=== PATIENT | female | born 2000 | race Caucasian/White ===

== ENCOUNTER 2019-12-04 16:55 | Emergency (ER) | payer SELFPAY ==
[~2019-12-04] VITALS: Ht 160 cm; Wt 99.4 kg
[~2019-12-04 16:55] MED LIST: AMOX500C2 PO; CLOT21CR VG; SULF1TAB35 PO
--- NOTE | 2019-12-04 17:13 | ED Integumentary General ---
General Chief Complaint: Allergic Reaction Stated Complaint: RASH Nursing Triage Note: RASH STARTING LAST NIGHT. UNKNOWN CAUSE. TOOK AN ALLERGY RELIEF TAB TODAY. Source: patient Exam Limitations: no limitations History of Present Illness Date Seen by Provider: Dec 04, 2019 Time Seen by Provider: 17:07 Initial Comments To ER with reports of rash that began last night. Began on the volar aspect left wrist and spread proximally up the arm then involved the right arm and her entire torso. Itchy despite taking a Benadryl at 2 PM. No known cause. Timing/Duration: constant Severity: moderate Location: torso Associated Symptoms: rash Allergies and Home Medications Allergies Coded Allergies: NKANo Known Allergies (Verified Allergy, Unknown, 02/24/18) Patient Home Medication List Home Medication List Reviewed: Yes Review of Systems Review of Systems Constitutional: see HPI EENTM: see HPI Respiratory: no symptoms reported Cardiovascular: no symptoms reported Genitourinary: no symptoms reported Musculoskeletal: no symptoms reported Skin: see HPI Psychiatric/Neurological: No Symptoms Reported Endocrine: No Symptoms Reported Past Xrppftm-Ijwojy-Klmsvo Hx Patient Social History Alcohol Use: Denies Use Recreational Drug Use: No Smoking Status: Never a Smoker 2nd Hand Smoke Exposure: No Recent Foreign Travel: No Contact w/Someone Who Travel: No Recent Infectious Disease Expo: No Recent Hopitalizations: No Seasonal Allergies Seasonal Allergies: No Past Medical History Surgeries: Yes Tonsillectomy Respiratory: No Cardiac: No Neurological: No Genitourinary: No Gastrointestinal: Yes (H. Pylori) Gastroesophageal Reflux Musculoskeletal: No Endocrine: No HEENT: No Cancer: No Psychosocial: No Integumentary: No Blood Disorders: No Family Medical History No Pertinent Family Hx Physical Exam Vital Signs Vital Signs - First Documented 12/04/19 17:00 Temp 37.1 Pulse 91 Resp 16 B/P (MAP) 130/90 (103) Pulse Ox 98 O2 Delivery Room Air Capillary Refill : Less Than 3 Seconds General Appearance: WD/WN, no apparent distress HEENT: PERRL/EOMI, normal ENT inspection Respiratory: no respiratory distress, no accessory muscle use Gastrointestinal: normal bowel sounds, non tender Neurologic/Psychiatric: alert, normal mood/affect, oriented x 3 Skin: normal color, warm/dry, rash, other (urticarial type rash diffusely) Skin Problem Character: urticarial Progress/Results/Core Measures Results/Orders My Orders Orders - MINNIE MERCER APRN Hydroxyzine Cap/Tab (Vistaril) (12/04/19 17:15) Prednisone Tablet (Deltasone Tablet) (12/04/19 17:15) Vital Signs/I&O 12/04/19 17:00 Temp 37.1 Pulse 91 Resp 16 B/P (MAP) 130/90 (103) Pulse Ox 98 O2 Delivery Room Air Blood Pressure Mean: 103 Departure Impression Primary Impression: Urticaria Disposition: 01 HOME, SELF-CARE Condition: Stable Departure-Patient Inst. Decision time for Depature: 17:12 Referrals: NO,LOCAL PHYSICIAN (PCP/Family) Primary Care Physician Patient Instructions: Pau (SAMANTHA) Add. Discharge Instructions: 1. Use the off brand Benadryl is fine (diphenhydramine), 1-2 tablets every 4 hours. Steroids as directed. Return to ER for any concerns. All discharge instructions reviewed with patient and/or family. Voiced understanding. MINNIE MERCER APRN Dec 04, 2019 17:13
[2019-12-04] MEDS ORDERED: hydrOXYzine (VISTARIL/ATARAX) 25 MG capsule/tablet PO ONE (17:15)
[2019-12-04] MEDS ORDERED: predniSONE 20 MG TAB PO ONE (17:15)
[2019-12-04 17:23] VITALS: BP 130/90
== END 2019-12-04 17:23 | disposition home or self-care (01) ==
LOC: EDUNIT# 16:55 → ER 16:56
DX: L50.9 Urticaria, unspecified (principal)
CPT/HCPCS: 99283

== ENCOUNTER 2021-02-02 10:57 | Emergency (ER) | payer SELFPAY ==
[~2021-02-02] VITALS: Ht 160 cm; Wt 108.0 kg
--- NOTE | 2021-02-02 12:41 | ED Back Pain ---
General Chief Complaint: Back Problems Stated Complaint: R SIDED PAIN Nursing Triage Note: PT AMB TO ROOM 2 PT CO OF BACK PAIN RADIATES FROM R EAR DOWN NECK AND TO MID BACK. STATES STARTED COUPLE DAYS AGO. PT CRYING Nursing Sepsis Screen: No Definite Risk History of Present Illness Date Seen by Provider: Feb 02, 2021 Time Seen by Provider: 12:00 Initial Comments 20-year-old female presents for right shoulder pain that is radiating to her thoracic spine. The pain began approximately 3 days ago, without an injury. She has tried ibuprofen 400 mg and some Tylenol with minimal assistance in her pain, last dose yesterday evening. She denies any injury or previous surgeries to her right shoulder she is right-hand dominant. Location: Other (Right shoulder) Timing/Duration: 3-4 Days Severity: Mild, Moderate Pain/Injury Location: Upper Extremity (Right shoulder) Radiation: Other (Thoracic spine) Method of Injury: Unknown Modifying Factors: Improves With Rest Associated Symptoms: muscle spasms; No fever, No weakness, No numbness in legs /feet, No tingling in legs/feet, No sensory/motor loss, No lower back pain, No loss of bladder control, No loss of bowel control Allergies and Home Medications Allergies Coded Allergies: NKANo Known Allergies (Verified Allergy, Unknown, 02/24/18) Home Medications Ciprofloxacin HCl 500 Mg Tablet, 500 MG PO BID Prescribed by: GENO AGUILAR on 02/02/211331 Cyclobenzaprine HCl 10 Mg Tablet, 10 MG PO Q8H PRN for SPASMS Prescribed by: GENO AGUILAR on 02/02/21 133 Ibuprofen 800 Mg Tablet, 800 MG PO Q8H PRN for PAIN Prescribed by: GENO AGUILAR on 02/02/21 1332 Patient Home Medication List Home Medication List Reviewed: Yes Review of Systems Constitutional: no symptoms reported, see HPI Musculoskeletal: see HPI, back pain (Upper thoracic), joint pain (Right shoulder) All Other Systems Reviewed Negative Unless Noted: Yes Past Abxjimk-Uzhbjm-Wsanvc Hx Past Med/Social Hx: Reviewed Nursing Past Med/Soc Hx Patient Social History Alcohol Use: Occasionally Uses Smoking Status: Never a Smoker 2nd Hand Smoke Exposure: No Recent Infectious Disease Expo: No Recent Hopitalizations: No Seasonal Allergies Seasonal Allergies: No Past Medical History Surgeries: Yes Tonsillectomy Respiratory: No Cardiac: No Neurological: No Genitourinary: No Gastrointestinal: Yes (H. Pylori) Gastroesophageal Reflux Musculoskeletal: No Endocrine: No HEENT: No Cancer: No Psychosocial: No Integumentary: No Blood Disorders: No Family Medical History No Pertinent Family Hx Physical Exam Vital Signs Vital Signs - First Documented 02/02/21 11:30 Temp 36.4 Pulse 91 Resp 20 B/P (MAP) 131/91 (104) Pulse Ox 98 Capillary Refill : Less Than 3 Seconds Height, Weight, BMI Height: 5'3.00" Weight: 180lbs. oz. 81.505666vh; 42.00 BMI Method:Stated General Appearance: No Apparent Distress, WD/WN HEENT: PERRL/EOMI, TMs Normal, Normal ENT Inspection, Pharynx Normal Neck: Full Range of Motion, Normal Inspection, Non Tender, Supple, Tender Lateral (Right); No Tender Midline Cardiovascular: Regular Rate, Rhythm, No Edema, No Murmur, Normal Peripheral Pulses Respiratory: Chest Non Tender, Lungs Clear, Normal Breath Sounds Back: Normal Inspection, No CVA Tenderness, Muscle Spasm (Right trapezius and upper thoracic) Neurologic/Psychiatric: Alert, Oriented x3, No Motor/Sensory Deficits, Normal Mood/Affect Skin: Normal Color, Warm/Dry Right shoulder limitation of motion secondary to pain. Pain with impingement maneuver. No weakness with bicep and tricep testing. Trace weakness in external rotators. Negative apprehension maneuver. Progress/Results/Core Measures Results/Orders Lab Results Laboratory Tests Test 02/02/21 12:44 Range/Units Urine Color YELLOW Urine Clarity CLEAR Urine pH 7.0 5-9 Urine Specific [place] 1.025 H 1.016-1.022 Urine Protein NEGATIVE NEGATIVE Urine Glucose (UA) NEGATIVE NEGATIVE Urine Ketones NEGATIVE NEGATIVE Urine Nitrite NEGATIVE NEGATIVE Urine Bilirubin NEGATIVE NEGATIVE Urine Urobilinogen 1.0 < = 1.0 MG/DL Urine Leukocyte Esterase 2+ H NEGATIVE Urine RBC (Auto) NEGATIVE NEGATIVE Urine RBC RARE /HPF Urine WBC 25-50 H /HPF Urine Squamous Epithelial Cells 10-25 H /HPF Urine Crystals NONE /LPF Urine Bacteria LARGE H /HPF Urine Casts NONE /LPF Urine Mucus SMALL H /LPF Urine Culture Indicated YES My Orders Orders - GENO AGUILAR Shoulder, Right, 3 Views (02/02/21 12:42) Ibuprofen Tablet (Motrin Tablet) (02/02/21 12:42) Cyclobenzaprine Tablet (Flexeril Tablet) (02/02/21 13:28) Vital Signs/I&O 02/02/21 02/02/21 11:30 13:38 Temp 36.4 Pulse 91 72 Resp 20 20 B/P (MAP) 131/91 (104) 122/82 (104) Pulse Ox 98 98 Blood Pressure Mean: 104 Diagnostic Imaging Diagonstic Imaging: Xray Plain Films/CT/US/NM/MRI: other (Shoulder) Comments NAME: YIFAN ANDINO [facility] REC#: [id number] PT STATUS: REG ER : 2000 PHYSICIAN: GENO AGUILAR ADMIT DATE: 02/02/21/ER Draft Date of Exam:02/02/21 SHOULDER, RIGHT, 3 VIEWS INDICATION: Right shoulder pain. FINDINGS: Three views of the right shoulder show no fracture, dislocation, or other acute abnormalities. IMPRESSION: Negative right shoulder. Dictated on workstation # [id number] Dict: 02/02/21 1325 Trans: 02/02/21 1328 [id number] Interpreted by: SRINIVAS MOSCOSO MD Electronically signed by: Departure Impression Primary Impression: Right shoulder pain Qualified Codes: M25.511 - Pain in right shoulder Additional Impression: UTI (urinary tract infection) Qualified Codes: N30.00 - Acute cystitis without hematuria Disposition: HOME, SELF-CARE Condition: Improved Departure-Patient Inst. Decision time for Depature: 13:15 Referrals: [facility]/GABRIELLA RUSHING,LOCAL PHYSICIAN (PCP) Primary Care Physician Patient Instructions: Shoulder Pain (DC), Upper Back Pain (DC), Urinary Tract Infection, Adult (DC) Add. Discharge Instructions: [facility] increase water intake, 16 ounces every 2 hours while awake. Take antibiotics as prescribed. Use ibuprofen 800 mg every 8 hours as prescribed, you may take Tylenol 650 mg 4 hours after your ibuprofen if it is not relieving your symptoms. Use the Flexeril as directed for muscle spasms. Use the sling as needed but remove 4-6 times daily and work on range of motion exercises for your right shoulder. If symptoms are not improving follow-up with your primary care provider at [facility] and seek referral to orthopedics or. Return to the emergency department for new, urgent healthcare needs. All discharge instructions reviewed with patient and/or family. Voiced understanding. Scripts Ciprofloxacin HCl (Ciprofloxacin HCl) 500 Mg Tablet 500 MG PO BID, #6 TAB 0 Refills Prov: GENO AGUILAR 02/02/21 Cyclobenzaprine HCl (Cyclobenzaprine HCl) 10 Mg Tablet 10 MG PO Q8H PRN for SPASMS, #15 TAB 0 Refills Prov: GENO AGUILAR 02/02/21 Ibuprofen (Ibuprofen) 800 Mg Tablet 800 MG PO Q8H PRN for PAIN, #30 TAB 0 Refills Prov: GENO AGUILAR 02/02/21 Work/School Note: Work Release Form Date Seen in the Emergency Department: Feb 02, 2021 Return to Work: Feb 04, 2021 Other Restrictions Listed Below: Sling as needed for work. GENO AGUILAR Feb 02, 2021 12:41
[2021-02-02] MEDS ORDERED: IBUPROFEN 800 MG (MOTRIN) TAB PO STA (12:42)
[2021-02-02 12:51] LABS: BILIRUBIN,URINE NEGATIVE (NEGATIVE); CLARITY,URINE CLEAR; COLOR,URINE YELLOW; GLUCOSE, URINE (UA) NEGATIVE (NEGATIVE); KETONES,URINE NEGATIVE (NEGATIVE); LEUKOCYTE ESTERASE ,URINE 2+ (NEGATIVE); NITRITE,URINE NEGATIVE (NEGATIVE); PROTEIN,URINE NEGATIVE (NEGATIVE)
[2021-02-02 13:09] LABS: BACTERIA,URINE LARGE /HPF; RBC,URINE RARE /HPF; WBC,URINE 25-50 /HPF
[2021-02-02] MEDS ORDERED: CYCLOBENZAPRINE 10 MG (FLEXERIL) TAB PO STA (13:28)
--- NOTE | 2021-02-02 13:29 | Diagnostic Imaging Report ---
INDICATION: Right shoulder pain. FINDINGS: Three views of the right shoulder show no fracture, dislocation, or other acute abnormalities. IMPRESSION: Negative right shoulder. Dictated by: Dictated on workstation # [id number]
[2021-02-02] MEDS ORDERED: CIPR500T5 PO (13:32)
[2021-02-02] MEDS ORDERED: IBUP-1780 PO (13:32)
[2021-02-02] MEDS ORDERED: CYCL10TA9 PO (13:32)
[2021-02-02 13:38] VITALS: BP 122/82
== END 2021-02-02 13:39 | disposition home or self-care (01) ==
LOC: EDUNIT# 10:57 → ER 10:59
DX: N30.00 Acute cystitis without hematuria (principal); M25.511 Pain in right shoulder
CPT/HCPCS: 73030; 81000; 84703; 87088

== ENCOUNTER 2021-05-03 06:35 | Emergency (ER) | payer SELFPAY ==
[~2021-05-03] VITALS: Ht 160 cm; Wt 105.0 kg
[~2021-05-03 06:35] MED LIST changes: +CIPR500T5 PO; +CYCL10TA9 PO; +IBUP-1780 PO
[2021-05-03 06:57] LABS: CLARITY,URINE CLOUDY; COLOR,URINE RED; GLUCOSE, URINE (UA) NEGATIVE (NEGATIVE); KETONES,URINE NEGATIVE (NEGATIVE); LEUKOCYTE ESTERASE ,URINE NEGATIVE (NEGATIVE); NITRITE,URINE NEGATIVE (NEGATIVE); PROTEIN,URINE 2+ (NEGATIVE)
[2021-05-03] MEDS ORDERED: LACTATED RINGERS 1,000 ML IV ONE (07:00)
[2021-05-03] MEDS ORDERED: KETOROLAC 30 MG/ML VIAL IVP ONE (07:00)
[2021-05-03] MEDS ORDERED: ONDANSETRON 4 MG/2 ML (SDV) Z0FRAN IVP ONE ×2 (07:00→09:45)
--- NOTE | 2021-05-03 07:01 | ED Abdominal Pain ---
General Stated Complaint: CHEST PAIN,KIDNEY PAIN Source of Information: Patient Exam Limitations: No Limitations History of Present Illness Date Seen by Provider: May 03, 2021 Time Seen by Provider: 06:42 Initial Comments Patient to the ER by private conveyance from home with chief complaint that about 2:30 in the morning she was awoken with sharp left flank pain nonrelenting, severe accompanied by nausea and vomiting. She did not take anything for the pain. She continued to have pain and after vomiting she developed some right-sided chest pain reproducible to deep inspiration but not direct palpation. No history of heart disease. No history of kidney stones. No history of abdominal surgeries. No fevers or chills. No diarrhea constipation or sick contacts. Allergies and Home Medications Allergies Coded Allergies: morphine (Verified Allergy, Severe, 05/03/21) stops breathing NKANo Known Allergies (Verified Allergy, Unknown, 02/24/18) acetaminophen (Verified Allergy, Unknown, rash, 05/03/21) hydrocodone (Verified Allergy, Unknown, rash, 05/03/21) Home Medications Ciprofloxacin HCl 500 Mg Tablet, 500 MG PO BID Prescribed by: GENO AGUILAR on 02/02/21 1332 Cyclobenzaprine HCl 10 Mg Tablet, 10 MG PO Q8H PRN for SPASMS Prescribed by: GENO AGUILAR on 02/02/21 1332 Ibuprofen 800 Mg Tablet, 800 MG PO Q8H PRN for PAIN Prescribed by: GENO AGUILAR on 02/02/21 1332 Patient Home Medication List Home Medication List Reviewed: Yes Review of Systems Review of Systems Constitutional: No chills, No fever, No malaise EENTM: No Blurred Vision, No Double Vision Respiratory: Denies Cough, Denies Shortness of Air Cardiovascular: See HPI, Chest Pain; Denies Lightheadedness Gastrointestinal: See HPI, Abdominal Pain; Denies Constipated, Denies Diarrhea; Nausea, Vomiting Genitourinary: Denies Discharge, Denies Drainage Musculoskeletal: No back pain, No joint pain Past Eyqowaq-Resczn-Glhcmq Hx Patient Social History Alcohol Use: Denies Use Smoking Status: Never a Smoker 2nd Hand Smoke Exposure: No Recent Hopitalizations: No Seasonal Allergies Seasonal Allergies: No Past Medical History Surgeries: Yes Tonsillectomy Respiratory: No Cardiac: No Neurological: No Genitourinary: No Gastrointestinal: Yes (H. Pylori) Gastroesophageal Reflux Musculoskeletal: No Endocrine: No HEENT: No Cancer: No Psychosocial: No Integumentary: No Blood Disorders: No Family Medical History No Pertinent Family Hx Physical Exam Vital Signs Vital Signs - First Documented 05/03/21 07:05 Temp 36.2 Pulse 85 Resp 20 B/P (MAP) 146/95 (112) Pulse Ox 98 O2 Delivery Room Air Capillary Refill : Height/Weight/BMI Height: 5'3.00" Weight: 180lbs. oz. 81.467368ke; 42.00 BMI Method:Stated General Appearance: WD/WN, mild distress HEENT: PERRL/EOMI, normal ENT inspection, pharynx normal Neck: full range of motion, normal inspection Respiratory: lungs clear, normal breath sounds, no respiratory distress, no ac cessory muscle use Cardiovascular: normal peripheral pulses, regular rate, rhythm Gastrointestinal: normal bowel sounds, soft, tenderness (Bilateral lower abdomen mildly tender to palpation) Back: normal inspection, CVA tenderness (L) Progress/Results/Core Measures Results/Orders Lab Results Laboratory Tests Test 05/03/21 06:48 05/03/21 06:54 Range/Units Urine Color RED H Urine Clarity CLOUDY Urine pH 6.0 5-9 Urine Specific [place] >=1.030 1.016-1.022 Urine Protein 2+ H NEGATIVE Urine Glucose (UA) NEGATIVE NEGATIVE Urine Ketones NEGATIVE NEGATIVE Urine Nitrite NEGATIVE NEGATIVE Urine Bilirubin NEGATIVE NEGATIVE Urine Urobilinogen 0.2 < = 1.0 MG/DL Urine Leukocyte Esterase NEGATIVE NEGATIVE Urine RBC (Auto) 3+ H NEGATIVE Urine RBC >100 H /HPF Urine WBC 2-5 /HPF Urine Squamous Epithelial Cells 2-5 /HPF Urine Crystals NONE /LPF Urine Bacteria MODERATE H /HPF Urine Casts NONE /LPF Urine Mucus NEGATIVE /LPF Urine Yeast MODERATE H /HPF Urine Culture Indicated YES White Blood Count 10.2 4.3-11.0 10^3/uL Red Blood Count 4.71 3.80-5.11 10^6/uL Hemoglobin 13.3 11.5-16.0 g/dL Hematocrit 41 35-52 % Mean Corpuscular Volume 86 80-99 fL Mean Corpuscular Hemoglobin 28 25-34 pg Mean Corpuscular Hemoglobin Concent 33 32-36 g/dL Red Cell Distribution Width 12.6 10.0-14.5 % Platelet Count 293 130-400 10^3/uL Mean Platelet Volume 9.6 9.0-12.2 fL Immature Granulocyte % (Auto) 1 % Neutrophils (%) (Auto) 67 42-75 % Lymphocytes (%) (Auto) 23 12-44 % Monocytes (%) (Auto) 7 0-12 % Eosinophils (%) (Auto) 2 0-10 % Basophils (%) (Auto) 0 0-10 % Neutrophils # (Auto) 6.9 1.8-7.8 10^3/uL Lymphocytes # (Auto) 2.4 1.0-4.0 10^3/uL Monocytes # (Auto) 0.7 0.0-1.0 10^3/uL Eosinophils # (Auto) 0.2 0.0-0.3 10^3/uL Basophils # (Auto) 0.0 0.0-0.1 10^3/uL Immature Granulocyte # (Auto) 0.1 0.0-0.1 10^3/uL Sodium Level 140 135-145 MMOL/L Potassium Level 3.6 3.6-5.0 MMOL/L Chloride Level 105 98-107 MMOL/L Carbon Dioxide Level 21 21-32 MMOL/L Anion Gap 14 5-14 MMOL/L Blood Urea Nitrogen 13 7-18 MG/DL Creatinine 0.89 0.60-1.30 MG/DL Estimat Glomerular Filtration Rate > 60 BUN/Creatinine Ratio 15 Glucose Level 139 H 70-105 MG/DL Calcium Level 9.2 8.5-10.1 MG/DL Corrected Calcium 9.0 8.5-10.1 MG/DL Total Bilirubin 0.4 0.1-1.0 MG/DL Aspartate Amino Transf (AST/SGOT) 13 5-34 U/L Alanine Aminotransferase (ALT/SGPT) 22 0-55 U/L Alkaline Phosphatase 62 40-136 U/L Total Protein 7.2 6.4-8.2 GM/DL Albumin 4.3 3.2-4.5 GM/DL My Orders Orders - SUNDEEP JAIME Ua Culture If Indicated (05/03/21 06:45) Urine Bedside (05/03/21 06:45) Ketorolac Injection (Toradol Injection) (05/03/21 07:00) Ondansetron Injection (Zofran Injectio (05/03/21 07:00) Ed Iv/Invasive Line Start (05/03/21 06:53) Lactated Ringers (Lr 1000 Ml Iv Solution (05/03/21 07:00) Cbc With Automated Diff (05/03/21 06:53) Comprehensive Metabolic Panel (05/03/21 06:53) Ct Abd/Pelvis Wo(Kidney Stone) (05/03/21 06:53) Ekg Tracing (05/03/21 07:02) Continuous Ekg Monitoring (05/03/21 07:02) Urine Culture (05/03/21 06:48) Ceftriaxone (Rocephin) (05/03/21 07:30) Abdomen/Kub 1view (05/03/21 08:29) Medications Given in ED Current Medications Medications Dose Ordered Sig/Sushant Route Start Time Stop Time Status Last Admin Dose Admin Ceftriaxone Sodium 1000 mg/ Sterile Water 10 ml @ 200 mls/hr ONCE ONCE IV 05/03/21 07:30 05/03/21 07:32 DC 05/03/21 09:03 200 MLS/HR Ketorolac Tromethamine 30 mg ONCE ONCE IVP 05/03/21 07:00 05/03/21 07:01 DC 05/03/21 07:03 30 MG Lactated Ringer's 1,000 ml @ 0 mls/hr Q0M ONCE IV 05/03/21 07:00 05/03/21 07:01 DC 05/03/21 07:03 1,000 MLS/HR Ondansetron HCl 8 mg ONCE ONCE IVP 05/03/21 07:00 05/03/21 07:01 DC 05/03/21 07:03 8 MG Vital Signs/I&O 05/03/21 07:05 Temp 36.2 Pulse 85 Resp 20 B/P (MAP) 146/95 (112) Pulse Ox 98 O2 Delivery Room Air Progress Progress Note : Time: 07:01 Progress Note Toradol, Zofran, suspect kidney stone. Liter of fluids and labs and urinalysis. CT of the abdomen pelvis without IV contrast. EKG Initial ECG Impression Date: May 03, 2021 Initial ECG Impression Time: 07:11 Initial ECG Rate: 88 Initial ECG Rhythm: Normal Sinus Initial ECG Intervals: Normal Initial ECG Impression: Normal Initial ECG Comparisson: No Previous ECG Available Comment Normal sinus rhythm without clinically relevant ST elevation or depression. Diagnostic Imaging Diagonstic Imaging: CT Plain Films/CT/US/NM/MRI: abdomen, pelvis, other Comments NAME: YIFAN ANDINO [facility] REC#: [id number] PT STATUS: REG ER : 2000 PHYSICIAN: SUNDEEP JAIME MD ADMIT DATE: 05/03/21/ER Draft Date of Exam:05/03/21 CT ABD/PELVIS WO(KIDNEY STONE) PROCEDURE: CT urinary tract, rule out kidney stone. TECHNIQUE: Multiple contiguous axial images were obtained through the abdomen and pelvis without the use of intravenous contrast. Auto Exposure Controls were utilized during the CT exam to meet ALARA standards for radiation dose reduction. INDICATION: Left flank pain. FINDINGS: Unenhanced images of liver, gallbladder, pancreas, adrenal gland and spleen are unremarkable. Kidney also has a normal appearance. There is mild left hydronephrosis with an approximately 0.3 cm calculus at the left ureteropelvic junction. Minimal punctate calcification is also seen in the lower pole of the left kidney. Otherwise, there is no free fluid seen within the abdomen or pelvis. The appendix has a normal appearance. Urinary bladder is unremarkable. There is no evidence of pathologically enlarged adenopathy. IMPRESSION: At least partially obstructing 0.3 cm calculus at the level of the proximal left ureter with additional nonobstructing punctate stone in the lower pole of the left kidney. Dictated on workstation # [id number] Dict: 05/03/21811 Trans: 05/03/21 0819 [id number] Interpreted by: EPI PITTMAN MD Electronically signed by: Reviewed: Reviewed by Vt Diagonstic Imaging: Xray Plain Films/CT/US/NM/MRI: chest Comments NAME: YIFAN ANDINO [facility] REC#: [id number] PT STATUS: REG ER : 2000 PHYSICIAN: SUNDEEP JAIME MD ADMIT DATE: 05/03/21/ER Signed Date of Exam:05/03/21 ABDOMEN/KUB 1VIEW INDICATION: Abdominal pain. COMPARISON: CT abdomen and pelvis performed concurrently. FINDINGS: Nonobstructive bowel gas pattern. Small volume of colonic stool is likely physiologic. The patient's known 3 mm stone in the proximal left ureter is not radiographically apparent. Normal regional skeleton. IMPRESSION: The patient's known 3 mm stone in the proximal left ureter is not radiographically apparent. Dictated by: Dictated on workstation # [id number] Dict: 05/03/21902 Trans: 05/03/21918 [id number] Interpreted by: OMA GARNICA MD Electronically signed by: OMA GARNICA MD 05/03/21918 Reviewed: Reviewed by Me Departure Impression Primary Impression: Ureteral calculus Disposition: HOME, SELF-CARE Condition: Stable Departure-Patient Inst. Decision time for Depature: 09:34 Referrals: NO,LOCAL PHYSICIAN (PCP) Primary Care Physician GALILEO DUDLEY MD Patient Instructions: Kidney Stones (DC) Add. Discharge Instructions: Drink plenty of fluids. Strain your urine to see if he can catch the stone. Typically symptoms will resolve in 1 to 2 days after the stone is caught. You may take the stone to your urologist or primary care doctor if you would like it identified for further information on how to prevent them. Tylenol 650 mg every 8 hours as necessary for pain. Ibuprofen 800 mg every 8 hours necessary for pain. Percocet 1 tablet every 4 hours as necessary for severe breakthrough pain. Percocet will cause drowsiness as well as constipation. MiraLAX and/or Colace can be helpful to keep your bowels regular. Zofran/ondansetron 1 tablet under the tongue every 6 hours as necessary for nausea or vomiting. Keflex 1 capsule twice a day for the next week to prevent infection in the bladder. Flomax 1 capsule daily until the stone passes. Scripts Tamsulosin HCl (Flomax) 0.4 Mg Cap 0.4 MG PO DAILY for 7 Days, #7 CAP 0 Refills Prov: SUNDEEP JAIME 05/03/21 Ondansetron (Ondansetron Odt) 4 Mg Tab.rapdis 4 MG PO Q6H PRN for NAUSEA/VOMITING, #15 TAB 0 Refills Prov: SUNDEEP JAIME 05/03/21 Oxycodone HCl/Acetaminophen (Percocet 5-325 mg Tablet) 1 Each Tablet 1 TAB PO Q4H PRN for PAIN-BREAKTHROUGH MDD 6 TABS for 7 Days, #15 TAB 0 Refills Prov: SUNDEEP JAIME 05/03/21 Cephalexin (Cephalexin) 500 Mg Tablet 500 MG PO BID for 7 Days, #14 TAB 0 Refills Prov: SUNDEEP JAIME 05/03/21 Copy Copies To 1: GALILEO DUDLEY MD, TITUS J May 03, 2021 07:01
[2021-05-03 07:03] LABS: BASOPHILS % (AUTO) 0 % (0-10); EOSINOPHILS # (AUTO) 0.2 10^3/uL (0.0-0.3); EOSINOPHILS % (AUTO) 2 % (0-10); HEMATOCRIT 41 % (35-52); HEMOGLOBIN 13.3 g/dL (11.5-16.0); LYMPHOCYTES # (AUTO) 2.4 10^3/uL (1.0-4.0); LYMPHOCYTES % (AUTO) 23 % (12-44); MEAN CORPUSCULAR HEMOGLOBIN 28 pg (25-34); MEAN CORPUSCULAR HGB CONC 33 g/dL (32-36); MEAN CORPUSCULAR VOLUME 86 fL (80-99); MEAN PLATELET VOLUME 9.6 fL (9.0-12.2); MONOCYTES # (AUTO) 0.7 10^3/uL (0.0-1.0); MONOCYTES % (AUTO) 7 % (0-12); NEUTROPHILS # (AUTO) 6.9 10^3/uL (1.8-7.8); NEUTROPHILS % (AUTO) 67 % (42-75); PLATELET COUNT 293 10^3/uL (130-400); WHITE BLOOD COUNT 10.2 10^3/uL (4.3-11.0)
[2021-05-03 07:10] LABS: BACTERIA,URINE MODERATE /HPF; BILIRUBIN,URINE NEGATIVE (NEGATIVE); RBC,URINE >100 /HPF; YEAST,URINE MODERATE /HPF
[2021-05-03 07:18] LABS: ALBUMIN 4.3 GM/DL (3.2-4.5); CHLORIDE 105 MMOL/L (98-107); POTASSIUM 3.6 MMOL/L (3.6-5.0); SODIUM 140 MMOL/L (135-145)
[2021-05-03 07:19] LABS: CALCIUM 9.2 MG/DL (8.5-10.1)
[2021-05-03 07:21] LABS: GLUCOSE 139 MG/DL (70-105); TOTAL PROTEIN 7.2 GM/DL (6.4-8.2)
[2021-05-03 07:22] LABS: BILIRUBIN,TOTAL 0.4 MG/DL (0.1-1.0); CARBON DIOXIDE 21 MMOL/L (21-32)
[2021-05-03 07:24] LABS: ALKALINE PHOSPHATASE 62 U/L (40-136); CREATININE SERUM 0.89 MG/DL (0.60-1.30); GFR ESTIMATED > 60
[2021-05-03 07:25] LABS: BUN/CREATININE RATIO 15
[2021-05-03 07:27] LABS: ALANINE AMINOTRANSFERASE 22 U/L (0-55)
[2021-05-03] MEDS ORDERED: cefTRIAXone 1,000 MG in WATER (STERILE) FOR INJECTION 10 ML IV ONE (07:30)
--- NOTE | 2021-05-03 08:20 | Diagnostic Imaging Report ---
PROCEDURE: CT urinary tract, rule out kidney stone. TECHNIQUE: Multiple contiguous axial images were obtained through the abdomen and pelvis without the use of intravenous contrast. Auto Exposure Controls were utilized during the CT exam to meet ALARA standards for radiation dose reduction. INDICATION: Left flank pain. FINDINGS: Unenhanced images of liver, gallbladder, pancreas, adrenal gland and spleen are unremarkable. Kidney also has a normal appearance. There is mild left hydronephrosis with an approximately 0.3 cm calculus at the left ureteropelvic junction. Minimal punctate calcification is also seen in the lower pole of the left kidney. Otherwise, there is no free fluid seen within the abdomen or pelvis. The appendix has a normal appearance. Urinary bladder is unremarkable. There is no evidence of pathologically enlarged adenopathy. IMPRESSION: At least partially obstructing 0.3 cm calculus at the level of the proximal left ureter with additional nonobstructing punctate stone in the lower pole of the left kidney. Dictated by: Dictated on workstation # [id number]
--- NOTE | 2021-05-03 09:05 | Diagnostic Imaging Report ---
INDICATION: Abdominal pain. COMPARISON: CT abdomen and pelvis performed concurrently. FINDINGS: Nonobstructive bowel gas pattern. Small volume of colonic stool is likely physiologic. The patient's known 3 mm stone in the proximal left ureter is not radiographically apparent. Normal regional skeleton. IMPRESSION: The patient's known 3 mm stone in the proximal left ureter is not radiographically apparent. Dictated by: Dictated on workstation # [id number]
[2021-05-03] MEDS ORDERED: TMSL.4C PO (09:42)
[2021-05-03] MEDS ORDERED: OXYC1TAB87 PO (09:42)
[2021-05-03] MEDS ORDERED: ONDA4TAB11 PO (09:42)
[2021-05-03] MEDS ORDERED: CEPH500T PO (09:42)
[2021-05-03] MEDS ORDERED: ACETAMINOPHEN 325 MG TABLET PO ONE (09:45)
[2021-05-03 10:00] VITALS: BP 131/81
== END 2021-05-03 10:00 | disposition home or self-care (01) ==
LOC: EDUNIT# 06:35 → ER 06:38
DX: N20.1 Calculus of ureter (principal)
CPT/HCPCS: 36415; 74018; 74176; 80053; 81000; 84703; 85025; 87088; 93005; 96361; 96374; 96375; 96376

== ENCOUNTER 2021-05-23 22:10 | Emergency (ER) | payer SELFPAY ==
[~2021-05-23] VITALS: Ht 160 cm; Wt 105.0 kg
[~2021-05-23 22:10] MED LIST changes: +CEPH500T PO; +ONDA4TAB11 PO; +OXYC1TAB87 PO; +TMSL.4C PO
[2021-05-23 23:05] LABS: BILIRUBIN,URINE NEGATIVE (NEGATIVE); CLARITY,URINE SL CLOUDY; COLOR,URINE YELLOW; GLUCOSE, URINE (UA) NEGATIVE (NEGATIVE); KETONES,URINE NEGATIVE (NEGATIVE); LEUKOCYTE ESTERASE ,URINE 1+ (NEGATIVE); NITRITE,URINE NEGATIVE (NEGATIVE); PROTEIN,URINE 2+ (NEGATIVE)
[2021-05-23 23:17] LABS: BACTERIA,URINE MODERATE /HPF; RBC,URINE >100 /HPF
[2021-05-23 23:23] LABS: BASOPHILS % (AUTO) 0 % (0-10); EOSINOPHILS # (AUTO) 0.2 10^3/uL (0.0-0.3); EOSINOPHILS % (AUTO) 2 % (0-10); HEMATOCRIT 40 % (35-52); LYMPHOCYTES # (AUTO) 2.3 10^3/uL (1.0-4.0); LYMPHOCYTES % (AUTO) 26 % (12-44); MEAN CORPUSCULAR HEMOGLOBIN 28 pg (25-34); MEAN CORPUSCULAR HGB CONC 33 g/dL (32-36); MEAN CORPUSCULAR VOLUME 87 fL (80-99); MEAN PLATELET VOLUME 9.8 fL (9.0-12.2); MONOCYTES # (AUTO) 0.9 10^3/uL (0.0-1.0); MONOCYTES % (AUTO) 10 % (0-12); NEUTROPHILS # (AUTO) 5.4 10^3/uL (1.8-7.8); NEUTROPHILS % (AUTO) 61 % (42-75); PLATELET COUNT 340 10^3/uL (130-400); WHITE BLOOD COUNT 8.9 10^3/uL (4.3-11.0)
[2021-05-23] MEDS ORDERED: fentaNYL INJ 100 MCG/2 ML AMP IVP ONE (23:30)
[2021-05-23 23:34] LABS: ALBUMIN 4.5 GM/DL (3.2-4.5); CHLORIDE 107 MMOL/L (98-107); POTASSIUM 3.7 MMOL/L (3.6-5.0); SODIUM 142 MMOL/L (135-145)
[2021-05-23 23:35] LABS: CALCIUM 9.5 MG/DL (8.5-10.1)
[2021-05-23 23:37] LABS: GLUCOSE 101 MG/DL (70-105); TOTAL PROTEIN 7.3 GM/DL (6.4-8.2)
[2021-05-23 23:38] LABS: BILIRUBIN,TOTAL 0.3 MG/DL (0.1-1.0); CARBON DIOXIDE 25 MMOL/L (21-32)
[2021-05-23 23:40] LABS: ALKALINE PHOSPHATASE 59 U/L (40-136); CREATININE SERUM 0.85 MG/DL (0.60-1.30); GFR ESTIMATED > 60
[2021-05-23 23:41] LABS: BUN/CREATININE RATIO 15
[2021-05-23 23:43] LABS: ALANINE AMINOTRANSFERASE 44 U/L (0-55)
[2021-05-23 23:44] LABS: LIPASE 18 U/L (8-78)
[2021-05-24 00:18] VITALS: BP 127/80
[2021-05-24] MEDS ORDERED: cefTRIAXone 1,000 MG in WATER (STERILE) FOR INJECTION 10 ML IV ONE (00:45)
[2021-05-24] MEDS ORDERED: KETOROLAC 30 MG/ML VIAL IVP ONE (00:45)
--- NOTE | 2021-05-24 01:02 | ED GI ---
General Chief Complaint: Abdominal/GI Problems Stated Complaint: PELVIC PAIN Nursing Triage Note: PT PRESENTS TO THE ED C/O UNCONTROLLED PAIN SINCE 0200 THIS AM AFTER REMOVING HER STENTS FOLLOWING A L SIDES LITHOTRIPSY. PT VERBALIZES PAIN W URINATION AND BEING UNABLE TO START A SOLID STREAM SINCE REMOVAL Source of Information: Patient Exam Limitations: No Limitations History of Present Illness Date Seen by Provider: May 23, 2021 Time Seen by Provider: 22:51 Initial Comments This 20-year-old young lady presents to the emergency room with complaints of uncontrolled pain after removing her left ureteral stents around 02: 00 this morning. Pain is worse now than it was prior to removal. She reports having laser treatment for kidney stones by Dr. Gonzales at [facility] in [place], [place]. She was instructed to remove her stents today. She reports dysuria as well. Stents were placed May 17. Allergies and Home Medications Allergies Coded Allergies: morphine (Verified Allergy, Severe, 05/03/21) stops breathing NKANo Known Allergies (Verified Allergy, Unknown, 02/24/18) acetaminophen (Verified Allergy, Unknown, rash, 05/03/21) hydrocodone (Verified Allergy, Unknown, rash, 05/03/21) Home Medications Cephalexin 500 Mg Tablet, 500 MG PO BID Prescribed by: SUNDEEP JAIME on 05/03/21 0942 Ciprofloxacin HCl 500 Mg Tablet, 500 MG PO BID Prescribed by: GENO AGUILAR on 02/02/21 1332 Cyclobenzaprine HCl 10 Mg Tablet, 10 MG PO Q8H PRN for SPASMS Prescribed by: GENO AGUILAR on 02/02/21 1332 Ibuprofen 800 Mg Tablet, 800 MG PO Q8H PRN for PAIN Prescribed by: GENO AGUILAR on 02/02/21 1332 Ondansetron 4 Mg Tab.rapdis, 4 MG PO Q6H PRN for NAUSEA/VOMITING Prescribed by: SUNDEEP JAIME on 05/03/21 0942 Oxycodone HCl/Acetaminophen 1 Each Tablet, 1 TAB PO Q4H PRN for PAIN- BREAKTHROUGH Prescribed by: SUNDEEP JAIME on 05/03/21 0942 Tamsulosin HCl 0.4 Mg Cap, 0.4 MG PO DAILY Prescribed by: SUNDEEP JAIME on 05/03/21 0942 Patient Home Medication List Home Medication List Reviewed: Yes Review of Systems Review of Systems Constitutional: no symptoms reported EENTM: No Symptoms Reported Respiratory: No Symptoms Reported Cardiovascular: No Symptoms Reported Gastrointestinal: No Symptoms Reported Genitourinary: See HPI Musculoskeletal: no symptoms reported Skin: no symptoms reported Psychiatric/Neurological: No Symptoms Reported Endocrine: No Symptoms Reported Past Fkxobbo-Tbdook-Btoxby Hx Patient Social History Tobacco Use?: No Substance use?: No Alcohol Use?: No Seasonal Allergies Seasonal Allergies: No Past Medical History Surgeries: Yes Renal (Lithotripsy and stenting), Tonsillectomy Respiratory: No Cardiac: No Neurological: Yes Seizure Disorder : No Last Menstrual Period: May 21, 2021 Genitourinary: Yes Kidney Stones Gastrointestinal: Yes (H. Pylori) Gastroesophageal Reflux Musculoskeletal: No Endocrine: No HEENT: No Cancer: No Psychosocial: No Integumentary: No Blood Disorders: No Family Medical History No Pertinent Family Hx Physical Exam Vital Signs Vital Signs - First Documented 05/23/21 22:40 Temp 36.9 Pulse 96 Resp 21 B/P (MAP) 132/84 (100) Pulse Ox 98 O2 Delivery Room Air Capillary Refill : Less Than 3 Seconds Height/Weight/BMI Height: 5'3.00" Weight: 180lbs. oz. 81.115635ea; 41.00 BMI Method:Stated General Appearance: WD/WN, mild distress HEENT: normal ENT inspection Respiratory: lungs clear, normal breath sounds, no respiratory distress Cardiovascular: regular rate, rhythm, no edema, no murmur Gastrointestinal: normal bowel sounds, soft, tenderness (Left-sided) Extremities: normal inspection, no pedal edema Neurologic/Psychiatric: alert, normal mood/affect, oriented x 3 Skin: normal color, warm/dry Progress/Results/Core Measures Results/Orders Lab Results Laboratory Tests Test 05/23/21 22:57 05/23/21 23:12 Range/Units Urine Color YELLOW Urine Clarity SL CLOUDY Urine pH 6.0 5-9 Urine Specific [place] >=1.030 1.016-1.022 Urine Protein 2+ H NEGATIVE Urine Glucose (UA) NEGATIVE NEGATIVE Urine Ketones NEGATIVE NEGATIVE Urine Nitrite NEGATIVE NEGATIVE Urine Bilirubin NEGATIVE NEGATIVE Urine Urobilinogen 0.2 < = 1.0 MG/DL Urine Leukocyte Esterase 1+ H NEGATIVE Urine RBC (Auto) 3+ H NEGATIVE Urine RBC >100 H /HPF Urine WBC 2-5 /HPF Urine Squamous Epithelial Cells 5-10 /HPF Urine Crystals NONE /LPF Urine Bacteria MODERATE H /HPF Urine Casts NONE /LPF Urine Mucus MODERATE H /LPF Urine Culture Indicated YES White Blood Count 8.9 4.3-11.0 10^3/uL Red Blood Count 4.59 3.80-5.11 10^6/uL Hemoglobin 13.0 11.5-16.0 g/dL Hematocrit 40 35-52 % Mean Corpuscular Volume 87 80-99 fL Mean Corpuscular Hemoglobin 28 25-34 pg Mean Corpuscular Hemoglobin Concent 33 32-36 g/dL Red Cell Distribution Width 12.7 10.0-14.5 % Platelet Count 340 130-400 10^3/uL Mean Platelet Volume 9.8 9.0-12.2 fL Immature Granulocyte % (Auto) 0 % Neutrophils (%) (Auto) 61 42-75 % Lymphocytes (%) (Auto) 26 12-44 % Monocytes (%) (Auto) 10 0-12 % Eosinophils (%) (Auto) 2 0-10 % Basophils (%) (Auto) 0 0-10 % Neutrophils # (Auto) 5.4 1.8-7.8 10^3/uL Lymphocytes # (Auto) 2.3 1.0-4.0 10^3/uL Monocytes # (Auto) 0.9 0.0-1.0 10^3/uL Eosinophils # (Auto) 0.2 0.0-0.3 10^3/uL Basophils # (Auto) 0.0 0.0-0.1 10^3/uL Immature Granulocyte # (Auto) 0.0 0.0-0.1 10^3/uL Sodium Level 142 135-145 MMOL/L Potassium Level 3.7 3.6-5.0 MMOL/L Chloride Level 107 98-107 MMOL/L Carbon Dioxide Level 25 21-32 MMOL/L Anion Gap 10 5-14 MMOL/L Blood Urea Nitrogen 13 7-18 MG/DL Creatinine 0.85 0.60-1.30 MG/DL Estimat Glomerular Filtration Rate > 60 BUN/Creatinine Ratio 15 Glucose Level 101 70-105 MG/DL Calcium Level 9.5 8.5-10.1 MG/DL Corrected Calcium 9.1 8.5-10.1 MG/DL Total Bilirubin 0.3 0.1-1.0 MG/DL Aspartate Amino Transf (AST/SGOT) 27 5-34 U/L Alanine Aminotransferase (ALT/SGPT) 44 0-55 U/L Alkaline Phosphatase 59 40-136 U/L C-Reactive Protein High Sensitivity 1.78 H 0.00-0.50 MG/DL Total Protein 7.3 6.4-8.2 GM/DL Albumin 4.5 3.2-4.5 GM/DL Lipase 18 8-78 U/L Serum Test, Qualitative NEGATIVE NEGATIVE Micro Results Microbiology 05/23/21 Urine Culture - Final, Complete Gram Pos Mixed Bacterial Korin My Orders Orders - LEYDI SOLITARIO MD Ua Culture If Indicated (05/23/21 22:51) Cbc With Automated Diff (05/23/21 23:16) Comprehensive Metabolic Panel (05/23/21 23:16) Hs C Reactive Protein (05/23/21 23:16) Hcg,Qualitative Serum (05/23/21 23:16) Lipase (05/23/21 23:16) Fentanyl Inj (Sublimaze Injection) (05/23/21 23:30) Urine Culture (05/23/21 22:57) Ceftriaxone (Rocephin) (05/24/21 00:45) Ketorolac Injection (Toradol Injection) (05/24/21 00:45) Medications Given in ED Vital Signs/I&O 05/23/21 05/24/21 22:40 00:18 Temp 36.9 36.9 Pulse 96 89 Resp 21 18 B/P (MAP) 132/84 (100) 127/80 (100) Pulse Ox 98 98 O2 Delivery Room Air Room Air Blood Pressure Mean: 100 Progress Progress Note : Progress Note Labs and urinalysis were reviewed. I discussed the case with Fransisca Galaviz NP and Toradol and a dose of Rocephin with follow-up by phone later in the day. This treatment plan was followed. Departure Impression Primary Impression: History of removal of ureteral stent Additional Impressions: Right flank pain Hematuria Qualified Codes: R31.9 - Hematuria, unspecified Disposition: HOME, SELF-CARE Condition: Improved Departure-Patient Inst. Decision time for Depature: 01:00 Referrals: NO,LOCAL PHYSICIAN (PCP/Family) Primary Care Physician Patient Instructions: Blood in the Urine (Hematuria), Adult (DC), Ureteral Stent Add. Discharge Instructions: Drink plenty of water and urinate at least every 2 hours. Use Tylenol (acetaminophen) up to 1000 mg every 6 hours as needed for pain. Add ibuprofen up to 600 mg every 6 hours as needed for uncontrolled pain. Call Dr. Gonzales's office tomorrow morning for further instructions. Call the ER with questions or concerns. Return to the ER if you have worsening symptoms, especially if you have esca lating pain, develop develop fevers, or have difficulty urinating. All discharge instructions reviewed with patient and/or family. Voiced understanding. LEYDI SOLITARIO MD May 24, 2021 01:02
== END 2021-05-24 01:16 | disposition home or self-care (01) ==
LOC: EDUNIT# 22:10 → ER 22:11
DX: R10.9 Unspecified abdominal pain (principal); R31.9 Hematuria, unspecified
CPT/HCPCS: 36415; 80053; 81000; 83690; 84703; 85025; 86141; 87088

== ENCOUNTER 2021-06-28 20:30 | Emergency (ER) | payer SELFPAY ==
[~2021-06-28] VITALS: Ht 163 cm; Wt 112.8 kg
[2021-06-28 21:21] LABS: BILIRUBIN,URINE NEGATIVE (NEGATIVE); CLARITY,URINE SL CLOUDY; COLOR,URINE YELLOW; GLUCOSE, URINE (UA) NEGATIVE (NEGATIVE); KETONES,URINE NEGATIVE (NEGATIVE); LEUKOCYTE ESTERASE ,URINE NEGATIVE (NEGATIVE); NITRITE,URINE NEGATIVE (NEGATIVE); PROTEIN,URINE NEGATIVE (NEGATIVE)
[2021-06-28 21:28] LABS: BACTERIA,URINE LARGE /HPF; CALCIUM OXALATE CRYSTALS,UR LARGE /LPF
--- NOTE | 2021-06-28 21:28 | ED Chest Pain ---
General Chief Complaint: Chest Wall Stated Complaint: CHEST PAIN, R ARM NUMBNESS Nursing Triage Note: C/O KIDNEY PAIN, RIGHT CHEST WALL PAIN RADIATING TO RIGHT ARM WITH INTERMITTANT BILATERAL ARM NUMBNESS DENIES INJURY Source: patient (BERNARD LARES STUDENT) History of Present Illness Date Seen by Provider: Jun 28, 2021 Time Seen by Provider: 21:00 Initial Comments Pt presents to ED via private conveyance with complaints of RUE/R chest pain/nu mbness/tingling. She states that it began on Sunday when she noticed the pain on her R chest that progressively worsened until today. She rates it /, describes it as children jumping on her, radiates down her RUE. She has been having SOB r/t exacerbation of pain. She also expressed LUE numbness that occurred about 4hrs ago, lasted 30min, and has resolved on its own. She also has L lower back pain, 04/14, colicky, worse with urination. She has a history of kidney stones and had one extracted a month ago, and states that her current L lower back pain feels similar to the pain with kidney stones. She has taken 500mg Acetaminophen 2x daily until today with no relief. She took Ibuprofen 500mg this morning with minimal relief. Timing/Duration: 3-4 days Severity/Quality: severe, other (shooting/throbbing) Location: other (R chest/RUE) Radiation: arms (radates down RUE) Activities at Onset: none Prior CP/Workup: no prior chest pain Modifying Factors: worse with breathing, worse with exercise, worse with movement, worse with palpation; improves with rest Associated Symptoms: back pain (L lower back), fever/chills (no fevers, states she has felt some chills); No heartburn, No nausea/vomiting; shortness of breath (r/t pain in RUE/R chest) (BERNARD LARES STUDENT) Allergies and Home Medications Allergies Coded Allergies: morphine (Verified Allergy, Severe, 05/03/21) stops breathing NKANo Known Allergies (Verified Allergy, Unknown, 02/24/18) acetaminophen (Verified Allergy, Unknown, rash, 05/03/21) hydrocodone (Verified Allergy, Unknown, rash, 05/03/21) Patient Home Medication List Home Medication List Reviewed: Yes (BERNARD LARES STUDENT) Review of Systems Review of Systems Constitutional: chills; No dizziness, No fever; weakness (RUE) EENTM: No Blurred Vision, No Ear Pain, No Mouth Pain Respiratory: Denies Cough, Denies Shortness of Air Cardiovascular: Chest Pain (R chest); Denies Irregular Heart Rate, Denies Lightheadedness Gastrointestinal: Denies Abdomen Distended, Denies Abdominal Pain, Denies Constipated, Denies Diarrhea, Denies Nausea Genitourinary: Denies Drainage, Denies Hematuria; Pain (L lower back pain 04/14, colicky, exacerbated by urination) Musculoskeletal: back pain (L lower back); No joint pain Skin: No change in color, No change in hair/nails (BERNARD LARES) All Other Systems Reviewed Negative Unless Noted: Yes (BERNARD LARES) Past Dtzlidf-Ymdcua-Dlghsq Hx Patient Social History Tobacco Use?: No Use of E-Cig and/or Vaping dev: No Substance use?: No Alcohol Use?: No Pt feels they are or have been: No (BERNARD LARES) Immunizations Up To Date First/Initial COVID19 Vaccinat: 04/25 Second COVID19 Vaccination Isai: 05/25 COVID19 Vaccine Care Transitions Nurse: MODERNA (BERNARD LARES) Seasonal Allergies Seasonal Allergies: No (BERNARD LARES) Past Medical History Surgery/Hospitalization HX: LITHOTRYPSY, T/A Surgeries: Yes Renal, Tonsillectomy Respiratory: No Cardiac: No Neurological: Yes Seizure Disorder Last Menstrual Period: Jun 14, 2021 Genitourinary: Yes Kidney Stones Gastrointestinal: Yes (H. Pylori) Gastroesophageal Reflux Musculoskeletal: No Endocrine: No HEENT: No Cancer: No Psychosocial: No Integumentary: No Blood Disorders: No (BERNARD LARES) Family Medical History No Pertinent Family Hx (BERNARD LARES) Physical Exam Vital Signs Vital Signs - First Documented 06/28/21 20:36 Temp 37.1 Pulse 94 Resp 18 B/P (MAP) 130/84 (99) Pulse Ox 95 O2 Delivery Room Air (SUNDEEP JAIME) Vital Signs Capillary Refill : Less Than 3 Seconds (BERNARD LARES STUDENT) Height, Weight, BMI Height: 5'3.00" Weight: 180lbs. oz. 81.587441cl; 42.00 BMI Method:Stated General Appearance: No Apparent Distress (uncomfortable appearance with repositioning/movement r/t RUE pain), WD/WN, Obese HEENT: PERRL/EOMI, Normal ENT Inspection, Pharynx Normal Neck: Full Range of Motion, Normal Inspection, Supple, Tender Midline (upper thoracic spine tender to palpation with radiation down RUE) Respiratory: Lungs Clear, Normal Breath Sounds, No Accessory Muscle Use, No Respiratory Distress, Other (R chest tender to palpation) Cardiovascular: Regular Rate, Rhythm, No Edema, Normal Peripheral Pulses Gastrointestinal: Normal Bowel Sounds, Soft, Tenderness (mild tenderness suprapubic region, tender to L flank/lower back, positive [employer] punch on L side) Rectal: Deferred Extremity: Normal Capillary Refill, Normal Inspection, No Calf Tenderness, No Pedal Edema, Other (RUE with limited ROM; unable to fully abduct/flex/extend due to pain, expresses numbness/tingling throughout arm) Neurologic/Psychiatric: Alert, Oriented x3, Normal Mood/Affect, Motor Weakness (RUE 3/5 strength LUE 4/5 strength) Skin: Normal Color, Warm/Dry Lymphatic: No Adenopathy (BERNARD LARES MED STUDENT) Progress/Results/Core Measures Results/Orders Lab Results Laboratory Tests Test 06/28/21 20:42 06/28/21 22:03 Range/Units Urine Color YELLOW Urine Clarity SL CLOUDY Urine pH 6.0 5-9 Urine Specific [place] >=1.030 1.016-1.022 Urine Protein NEGATIVE NEGATIVE Urine Glucose (UA) NEGATIVE NEGATIVE Urine Ketones NEGATIVE NEGATIVE Urine Nitrite NEGATIVE NEGATIVE Urine Bilirubin NEGATIVE NEGATIVE Urine Urobilinogen 0.2 < = 1.0 MG/DL Urine Leukocyte Esterase NEGATIVE NEGATIVE Urine RBC (Auto) 1+ H NEGATIVE Urine RBC 2-5 H /HPF Urine WBC 5-10 H /HPF Urine Squamous Epithelial Cells 10-25 H /HPF Urine Renal Epithelial Cells NONE /HPF Urine Crystals PRESENT H /LPF Urine Calcium Oxalate Crystals LARGE H /LPF Urine Bacteria LARGE H /HPF Urine Casts NONE /LPF Urine Mucus NEGATIVE /LPF Urine Culture Indicated YES White Blood Count 11.6 H 4.3-11.0 10^3/uL Red Blood Count 4.41 3.80-5.11 10^6/uL Hemoglobin 12.5 11.5-16.0 g/dL Hematocrit 39 35-52 % Mean Corpuscular Volume 88 80-99 fL Mean Corpuscular Hemoglobin 28 25-34 pg Mean Corpuscular Hemoglobin Concent 32 32-36 g/dL Red Cell Distribution Width 13.0 10.0-14.5 % Platelet Count 290 130-400 10^3/uL Mean Platelet Volume 10.0 9.0-12.2 fL Immature Granulocyte % (Auto) 0 % Neutrophils (%) (Auto) 69 42-75 % Lymphocytes (%) (Auto) 23 12-44 % Monocytes (%) (Auto) 7 0-12 % Eosinophils (%) (Auto) 1 0-10 % Basophils (%) (Auto) 0 0-10 % Neutrophils # (Auto) 8.0 H 1.8-7.8 10^3/uL Lymphocytes # (Auto) 2.7 1.0-4.0 10^3/uL Monocytes # (Auto) 0.8 0.0-1.0 10^3/uL Eosinophils # (Auto) 0.1 0.0-0.3 10^3/uL Basophils # (Auto) 0.0 0.0-0.1 10^3/uL Immature Granulocyte # (Auto) 0.0 0.0-0.1 10^3/uL Sodium Level 141 135-145 MMOL/L Potassium Level 3.7 3.6-5.0 MMOL/L Chloride Level 107 98-107 MMOL/L Glucose Level 78 70-105 MG/DL Calcium Level 9.7 8.5-10.1 MG/DL Corrected Calcium 9.5 8.5-10.1 MG/DL Albumin 4.2 3.2-4.5 GM/DL (SUNDEEP JAIME) My Orders Orders - SUNDEEP JAIME Continuous Ekg Monitoring (06/28/21 20:49) Ekg Tracing (06/28/21 20:49) Ua Culture If Indicated (06/28/21 21:13) Urine Bedside (06/28/21 21:13) Urine Culture (06/28/21 20:42) Ketorolac Injection (Toradol Injection) (06/28/21 22:00) Ct Abd/Pelvis Wo(Kidney Stone) (06/28/21 21:50) Ceftriaxone (Rocephin) (06/28/21 22:00) Cbc With Automated Diff (06/28/21 21:50) Comprehensive Metabolic Panel (06/28/21 21:50) Ed Iv/Invasive Line Start (06/28/21 21:50) (SUNDEEP JAIME) Medications Given in ED Current Medications Medications Dose Ordered Sig/Sushant Route Start Time Stop Time Status Last Admin Dose Admin Ceftriaxone Sodium 1000 mg/ Sterile Water 10 ml @ 200 mls/hr ONCE ONCE IV 06/28/21 22:00 06/28/21 22:02 DC 06/28/21 22:06 200 MLS/HR Ketorolac Tromethamine 30 mg ONCE ONCE IVP 06/28/21 22:00 06/28/21 22:01 DC 06/28/21 22:06 30 MG (SUNDEEP JAIME) Vital Signs/I&O 06/28/21 20:36 Temp 37.1 Pulse 94 Resp 18 B/P (MAP) 130/84 (99) Pulse Ox 95 O2 Delivery Room Air (SUNDEEP JAIME) Blood Pressure Mean: 99 Progress Progress Note : Time: 21:52 Progress Note Patient with a history of kidney stones and stents status post removal by urologist at the [facility] in [place] presents with similar symptoms of left flank pain. He is also having some paresthesias and pain in her upper back and bilateral arms for the past couple days. Could be that this is related in the problem bilaterally state of her kidney stone and possible UTI is causing her to have worsening impinged chronic nerves. Suggested to her that we take care of her kidney stone today and get some follow-up with her primary care doctor. She is okay with this plan. Toradol and Rocephin. CT of the abdomen pelvis without IV contrast. I attest that I saw this patient alongside the medical student and agree with his documented history, physical exam and review of systems except as otherwise noted. (SUNDEEP JAIME) Initial ECG Impression Date: Jun 28, 2021 Initial ECG Impression Time: 20:57 Initial ECG Rate: 100 Initial ECG Rhythm: S.Tach Initial ECG Intervals: Normal Initial ECG Impression: Normal Comment Normal sinus rhythm/tachycardia with no relevant ST changes. (SUNDEEP JAIME) Diagnostic Imaging Diagonstic Imaging: CT Plain Films/CT/US/NM/MRI: abdomen, pelvis Comments NAME: [facility] REC#: [id number] PT STATUS: REG ER : 2000 PHYSICIAN: SUNDEEP JAIME MD ADMIT DATE: 06/28/21/ER Draft Date of Exam:06/28/21 CT ABD/PELVIS WO(KIDNEY STONE) PROCEDURE: CT urinary tract, rule out kidney stone. TECHNIQUE: Multiple contiguous axial images were obtained through the abdomen and pelvis without the use of intravenous contrast. Auto Exposure Controls were utilized during the CT exam to meet ALARA standards for radiation dose reduction. INDICATION: Abdominal pain, flank pain. COMPARISON: 05/03/2021 FINDINGS: The lung bases are clear. The heart is normal in size. The liver demonstrates fatty infiltration. No focal lesion is seen. The spleen appears normal. A small splenule is noted. The pancreas appears normal. The adrenal glands are normal. The kidneys demonstrate no hydronephrosis. There is a punctate nonobstructing calculus in the inferior left kidney. There is no hydroureter or calculi seen in the ureters. No calculi are seen in the bladder. The appendix is normal. The bowel loops are nondistended without obstruction. No free fluid or free air is seen. No acute osseous abnormality is identified. IMPRESSION: 1. Punctate nonobstructing calculus in the left kidney. No obstructing calculi or hydronephrosis. 2. Hepatic steatosis. Dictated on workstation # [id number] Dict: 06/28/212222 Trans: 06/28/212226 [facility] [id number] Interpreted by: CASANDRA ROACH MD Electronically signed by: Reviewed: Reviewed Night [facility] Study, Reviewed by Me (SUNDEEP JAIME) Departure Impression Primary Impression: Radiculopathy affecting upper extremity Additional Impressions: Left nephrolithiasis UTI (urinary tract infection) Qualified Codes: N30.01 - Acute cystitis with hematuria Disposition: HOME, SELF-CARE Condition: Stable Departure-Patient Inst. Decision time for Depature: 22:35 (SUNDEEP JAIME) Referrals: NO,LOCAL PHYSICIAN (PCP) Primary Care Physician GALILEO DUDLEY MD Patient Instructions: Radiculopathy, Kidney Stones (DC) Add. Discharge Instructions: Based on your urinalysis and CT it looks like he had just passed a kidney stone. You do still have a punctate small stone in the kidney but not obstructing or causing any trouble on the left side. Drink plenty of fluids. Keflex 1 capsule twice a day for the next week for urinary tract infection. If your symptoms are not improving your arms and back in the next 1 to 2 weeks then follow-up with a primary care doctor to discuss appropriate next steps. Follow-up with the urologist, Dr. Dudley if you have any questions or concerns about kidney stones and he can help manage your symptoms. All discharge instructions reviewed with patient and/or family. Voiced understanding. Scripts Cephalexin (Cephalexin) 500 Mg Tablet 500 MG PO BID for 7 Days, #14 TAB 0 Refills Prov: SUNDEEP JAIME 06/28/21 BERNARD LARES MED STUDENT Jun 28, 2021 21:28 SUNDEEP JAIME Jun 28, 2021 21:53
[2021-06-28] MEDS ORDERED: KETOROLAC 30 MG/ML VIAL IVP ONE (22:00)
[2021-06-28] MEDS ORDERED: cefTRIAXone 1,000 MG in WATER (STERILE) FOR INJECTION 10 ML IV ONE (22:00)
[2021-06-28 22:14] LABS: BASOPHILS % (AUTO) 0 % (0-10); EOSINOPHILS # (AUTO) 0.1 10^3/uL (0.0-0.3); EOSINOPHILS % (AUTO) 1 % (0-10); HEMATOCRIT 39 % (35-52); HEMOGLOBIN 12.5 g/dL (11.5-16.0); LYMPHOCYTES # (AUTO) 2.7 10^3/uL (1.0-4.0); LYMPHOCYTES % (AUTO) 23 % (12-44); MEAN CORPUSCULAR HEMOGLOBIN 28 pg (25-34); MEAN CORPUSCULAR HGB CONC 32 g/dL (32-36); MEAN CORPUSCULAR VOLUME 88 fL (80-99); MONOCYTES # (AUTO) 0.8 10^3/uL (0.0-1.0); MONOCYTES % (AUTO) 7 % (0-12); NEUTROPHILS % (AUTO) 69 % (42-75); PLATELET COUNT 290 10^3/uL (130-400); WHITE BLOOD COUNT 11.6 10^3/uL (4.3-11.0)
[2021-06-28 22:27] LABS: ALBUMIN 4.2 GM/DL (3.2-4.5); POTASSIUM 3.7 MMOL/L (3.6-5.0)
--- NOTE | 2021-06-28 22:27 | Diagnostic Imaging Report ---
PROCEDURE: CT urinary tract, rule out kidney stone. TECHNIQUE: Multiple contiguous axial images were obtained through the abdomen and pelvis without the use of intravenous contrast. Auto Exposure Controls were utilized during the CT exam to meet ALARA standards for radiation dose reduction. INDICATION: Abdominal pain, flank pain. COMPARISON: 05/03/2021 FINDINGS: The lung bases are clear. The heart is normal in size. The liver demonstrates fatty infiltration. No focal lesion is seen. The spleen appears normal. A small splenule is noted. The pancreas appears normal. The adrenal glands are normal. The kidneys demonstrate no hydronephrosis. There is a punctate nonobstructing calculus in the inferior left kidney. There is no hydroureter or calculi seen in the ureters. No calculi are seen in the bladder. The appendix is normal. The bowel loops are nondistended without obstruction. No free fluid or free air is seen. No acute osseous abnormality is identified. IMPRESSION: 1. Punctate nonobstructing calculus in the left kidney. No obstructing calculi or hydronephrosis. 2. Hepatic steatosis. Dictated by: Dictated on workstation # [id number]
[2021-06-28 22:28] LABS: CALCIUM 9.7 MG/DL (8.5-10.1)
[2021-06-28 22:29] LABS: TOTAL PROTEIN 6.7 GM/DL (6.4-8.2)
[2021-06-28 22:31] LABS: BILIRUBIN,TOTAL 0.4 MG/DL (0.1-1.0)
[2021-06-28 22:33] LABS: CREATININE SERUM 0.83 MG/DL (0.60-1.30)
[2021-06-28] MEDS ORDERED: CEPH500T PO (22:37)
[2021-06-28 22:44] VITALS: BP 110/83
== END 2021-06-28 22:48 | disposition home or self-care (01) ==
LOC: EDUNIT# 20:30 → ER 20:32
DX: M54.10 Radiculopathy, site unspecified (principal); N20.0 Calculus of kidney; N39.0 Urinary tract infection, site not specified; E66.9 Obesity, unspecified; Z68.41 Body mass index [BMI] 40.0-44.9, adult
CPT/HCPCS: 36415; 74176; 80053; 81000; 84703; 85025; 87088; 93005; 93041; 96374; 96375

== ENCOUNTER 2021-11-30 10:22 | Emergency (ER) | payer SELFPAY ==
[~2021-11-30 10:22] MED LIST changes: +CYCL10TA25 PO; -CYCL10TA9 PO
[2021-11-30] MEDS ORDERED: KETOROLAC 30 MG/ML VIAL IVP ONE (11:00)
[2021-11-30] MEDS ORDERED: TAMSULOSIN 0.4 MG (FLOMAX) CAP PO SCH (11:00)
[2021-11-30] MEDS ORDERED: NS IV 1000 ML 1,000 ML IV SCH (11:00)
--- NOTE | 2021-11-30 11:03 | ED GU-Female ---
General Chief Complaint: Abdominal/GI Problems Stated Complaint: LLQ PAIN Source: patient Exam Limitations: no limitations History of Present Illness Date Seen by Provider: Nov 30, 2021 Time Seen by Provider: 11:01 Initial Comments To ER with reports of left sided lower abdominal pain. Is been present for a couple of months getting progressively worse over the course of the past week or so. She had a left ureteral stone treated with lithotripsy in May at [facility] in [place]. She had stent placement at that time which she removed on her own at her doctor's discretion she reports in June. She does not follow with any urology regularly. She reports intermittent fevers at home to a maximum of 99 degrees. Timing/Duration: constant Severity/Quality: moderate Location: unknown Radiation: none Activities at Onset: none Prior Genitourinary Problems: none Associated Symptoms: abdominal pain; No dysuria Allergies and Home Medications Allergies Coded Allergies: morphine (Verified Allergy, Severe, 05/03/21) stops breathing NKANo Known Allergies (Verified Allergy, Unknown, 02/24/18) acetaminophen (Verified Allergy, Unknown, rash, 05/03/21) hydrocodone (Verified Allergy, Unknown, rash, 05/03/21) Patient Home Medication List Home Medication List Reviewed: Yes Cephalexin (Cephalexin) 500 Mg Tablet, 500 MG PO BID Prescribed by: SUNDEEP JAIME on 06/28/212236 Review of Systems Review of Systems Constitutional: see HPI EENTM: see HPI Respiratory: no symptoms reported Cardiovascular: no symptoms reported Genitourinary: see HPI Musculoskeletal: no symptoms reported Skin: no symptoms reported Psychiatric/Neurological: No Symptoms Reported Endocrine: No Symptoms Reported Hematologic/Lymphatic: No Symptoms Reported Past Vrimgcq-Sszeuz-Vqvhmm Hx Patient Social History Tobacco Use?: No Substance use?: No Alcohol Use?: No Immunizations Up To Date Influenza Vaccine Up-to-Date: No; Not Current First/Initial COVID19 Vaccinat: 04/25 Second COVID19 Vaccination Isai: 05/25 COVID19 Vaccine Tobacco Prizer: ALISA Seasonal Allergies Seasonal Allergies: No Past Medical History Surgery/Hospitalization HX: LITHOTRYPSY, T/A Surgeries: Yes Renal, Tonsillectomy Respiratory: No Cardiac: No Neurological: Yes Seizure Disorder Genitourinary: Yes Kidney Stones Gastrointestinal: Yes (H. Pylori) Gastroesophageal Reflux Musculoskeletal: No Endocrine: No HEENT: No Cancer: No Psychosocial: No Integumentary: No Blood Disorders: No Family Medical History No Pertinent Family Hx Physical Exam Vital Signs Vital Signs - First Documented 11/30/21 11:02 Temp 36.8 Pulse 84 Resp 18 B/P (MAP) 141/85 (103) Pulse Ox 100 O2 Delivery Room Air Capillary Refill : Height, Weight, BMI Height: 5'3.00" Weight: 180lbs. oz. 81.118105nx; 42.00 BMI Method:Stated General Appearance: WD/WN, no apparent distress HEENT: PERRL/EOMI, normal ENT inspection Respiratory: no respiratory distress, no accessory muscle use Gastrointestinal: normal bowel sounds, non tender Back: No CVA tenderness (R); CVA tenderness (L) Extremities: normal range of motion, non-tender Neurologic/Psychiatric: alert, normal mood/affect, oriented x 3 Skin: normal color, warm/dry Progress/Results/Core Measures Suspected Sepsis SIRS Temperature: Pulse: Respiratory Rate: Laboratory Tests 11/30/21 11:03: White Blood Count 8.0 Blood Pressure / Mean: Laboratory Tests 11/30/21 11:03: Creatinine 0.80, Platelet Count 306, Total Bilirubin 0.6 Results/Orders Lab Results Laboratory Tests Test 11/30/21 11:03 11/30/21 11:05 Range/Units White Blood Count 8.0 4.3-11.0 10^3/uL Red Blood Count 5.01 3.80-5.11 10^6/uL Hemoglobin 14.4 11.5-16.0 g/dL Hematocrit 44 35-52 % Mean Corpuscular Volume 88 80-99 fL Mean Corpuscular Hemoglobin 29 25-34 pg Mean Corpuscular Hemoglobin Concent 33 32-36 g/dL Red Cell Distribution Width 12.6 10.0-14.5 % Platelet Count 306 130-400 10^3/uL Mean Platelet Volume 10.1 9.0-12.2 fL Immature Granulocyte % (Auto) 0 % Neutrophils (%) (Auto) 67 42-75 % Lymphocytes (%) (Auto) 23 12-44 % Monocytes (%) (Auto) 8 0-12 % Eosinophils (%) (Auto) 1 0-10 % Basophils (%) (Auto) 0 0-10 % Neutrophils # (Auto) 5.4 1.8-7.8 10^3/uL Lymphocytes # (Auto) 1.8 1.0-4.0 10^3/uL Monocytes # (Auto) 0.6 0.0-1.0 10^3/uL Eosinophils # (Auto) 0.1 0.0-0.3 10^3/uL Basophils # (Auto) 0.0 0.0-0.1 10^3/uL Immature Granulocyte # (Auto) 0.0 0.0-0.1 10^3/uL Sodium Level 138 135-145 MMOL/L Potassium Level 4.2 3.6-5.0 MMOL/L Chloride Level 103 98-107 MMOL/L Carbon Dioxide Level 26 21-32 MMOL/L Anion Gap 9 5-14 MMOL/L Blood Urea Nitrogen 10 7-18 MG/DL Creatinine 0.80 0.60-1.30 MG/DL Estimat Glomerular Filtration Rate 106 BUN/Creatinine Ratio 13 Glucose Level 98 70-105 MG/DL Calcium Level 9.4 8.5-10.1 MG/DL Corrected Calcium 8.5-10.1 MG/DL Total Bilirubin 0.6 0.1-1.0 MG/DL Aspartate Amino Transf (AST/SGOT) 20 5-34 U/L Alanine Aminotransferase (ALT/SGPT) 34 0-55 U/L Alkaline Phosphatase 55 40-136 U/L Total Protein 7.5 6.4-8.2 GM/DL Albumin 4.7 H 3.2-4.5 GM/DL Serum Test, Qualitative NEGATIVE NEGATIVE Urine Color YELLOW Urine Clarity CLEAR Urine pH 6.5 5-9 Urine Specific [place] 1.025 H 1.016-1.022 Urine Protein NEGATIVE NEGATIVE Urine Glucose (UA) NEGATIVE NEGATIVE Urine Ketones NEGATIVE NEGATIVE Urine Nitrite NEGATIVE NEGATIVE Urine Bilirubin NEGATIVE NEGATIVE Urine Urobilinogen 0.2 < = 1.0 MG/DL Urine Leukocyte Esterase 1+ H NEGATIVE Urine RBC (Auto) TRACE-I H NEGATIVE Urine RBC NONE /HPF Urine WBC 10-25 H /HPF Urine Squamous Epithelial Cells 10-25 H /HPF Urine Crystals NONE /LPF Urine Bacteria FEW H /HPF Urine Casts NONE /LPF Urine Mucus NEGATIVE /LPF Urine Culture Indicated YES My Orders Orders - MINNIE MERCER [employer] Cbc With Automated Diff (11/30/21 10:56) Comprehensive Metabolic Panel (11/30/21 10:56) Ed Iv/Invasive Line Start (11/30/21 10:56) Abdomen/Kub 1view (11/30/21 10:56) Ct Abd/Pelvis Wo(Kidney Stone) (11/30/21 10:56) Ua Culture If Indicated (11/30/21 10:56) Hcg,Qualitative Serum (11/30/21 10:56) Ketorolac Injection (Toradol Injection) (11/30/21 11:00) Tamsulosin Capsule (Flomax Capsule) (11/30/21 11:00) Ns Iv 1000 Ml (Sodium Chloride 0.9%) (11/30/21 11:00) Urine Culture (11/30/21 11:05) Ceftriaxone 1 Gm Pre-Mix (Rocephin 1 Gm (11/30/21 11:30) Medications Given in ED Current Medications Medications Dose Ordered Sig/Sushant Route Start Time Stop Time Status Last Admin Dose Admin Ketorolac Tromethamine 15 mg ONCE ONCE IVP 11/30/21 11:00 11/30/21 11:01 DC 11/30/21 11:31 15 MG Vital Signs/I&O 11/30/21 11:02 Temp 36.8 Pulse 84 Resp 18 B/P (MAP) 141/85 (103) Pulse Ox 100 O2 Delivery Room Air Capillary Refill : Departure Communication (Admissions) NAME: YIFAN ANDINO [facility] REC#: [id number] PT STATUS: REG ER : 2000 PHYSICIAN: MINNIE MERCER APRN ADMIT DATE: 11/30/21/ER Draft Date of Exam:11/30/21 CT ABD/PELVIS WO(KIDNEY STONE) PROCEDURE: CT urinary tract, rule out kidney stone. TECHNIQUE: Multiple contiguous axial images were obtained through the abdomen and pelvis without the use of intravenous contrast. Auto Exposure Controls were utilized during the CT exam to meet ALARA standards for radiation dose reduction. INDICATION: Left lower abdominal pain. Patient's history of kidney stones. Correlation is made with prior CT 06/28/2021. The lung bases are clear. Liver and gallbladder are unremarkable. No biliary duct dilatation is seen. The pancreas and spleen are unremarkable. No adrenal mass is detected. Punctate nonobstructing calculus lower pole left kidney is again noted. Right kidney is unremarkable. There is no hydronephrosis. No ureteral or bladder calculi are seen. Aorta is nonaneurysmal. Bowel loops are nonobstructed. No inflammatory changes are seen. The uterus and ovaries are unremarkable. No free fluid or fluid collection. IMPRESSION: Tiny nonobstructing left renal calculus. No ureteral calculi or hydronephrosis is identified. No acute feature is detected. Impression Primary Impression: UTI (urinary tract infection) Disposition: HOME, SELF-CARE Condition: Stable Departure-Patient Inst. Decision time for Depature: 11:42 Referrals: NO,LOCAL PHYSICIAN (PCP) Primary Care Physician Patient Instructions: Urinary Tract Infection, Adult (DC) Add. Discharge Instructions: 1. Increase fluid intake. Medication as directed. The medication will turn your urine very dark orange. All discharge instructions reviewed with patient and/or family. Voiced understanding. Scripts Phenazopyridine HCl (Pyridium) 100 Mg Tablet 100 MG PO TID, #9 TAB Prov: MINNIE MERCER [employer] 11/30/21 Cefuroxime Axetil (Cefuroxime) 250 Mg Tablet 250 MG PO BID, #10 TAB Prov: MINNIE MERCER [employer] 11/30/21 MINNIE MERCER APRN Nov 30, 2021 11:03
[2021-11-30 11:15] LABS: BASOPHILS % (AUTO) 0 % (0-10); EOSINOPHILS # (AUTO) 0.1 10^3/uL (0.0-0.3); EOSINOPHILS % (AUTO) 1 % (0-10); HEMATOCRIT 44 % (35-52); HEMOGLOBIN 14.4 g/dL (11.5-16.0); LYMPHOCYTES # (AUTO) 1.8 10^3/uL (1.0-4.0); LYMPHOCYTES % (AUTO) 23 % (12-44); MEAN CORPUSCULAR HEMOGLOBIN 29 pg (25-34); MEAN CORPUSCULAR HGB CONC 33 g/dL (32-36); MEAN CORPUSCULAR VOLUME 88 fL (80-99); MEAN PLATELET VOLUME 10.1 fL (9.0-12.2); MONOCYTES # (AUTO) 0.6 10^3/uL (0.0-1.0); MONOCYTES % (AUTO) 8 % (0-12); NEUTROPHILS # (AUTO) 5.4 10^3/uL (1.8-7.8); NEUTROPHILS % (AUTO) 67 % (42-75); PLATELET COUNT 306 10^3/uL (130-400)
[2021-11-30 11:18] LABS: BILIRUBIN,URINE NEGATIVE (NEGATIVE); CLARITY,URINE CLEAR; COLOR,URINE YELLOW; GLUCOSE, URINE (UA) NEGATIVE (NEGATIVE); KETONES,URINE NEGATIVE (NEGATIVE); LEUKOCYTE ESTERASE ,URINE 1+ (NEGATIVE); NITRITE,URINE NEGATIVE (NEGATIVE); PH,URINE 6.5 (5-9); PROTEIN,URINE NEGATIVE (NEGATIVE)
[2021-11-30 11:24] LABS: ALBUMIN 4.7 GM/DL (3.2-4.5); CHLORIDE 103 MMOL/L (98-107); POTASSIUM 4.2 MMOL/L (3.6-5.0); SODIUM 138 MMOL/L (135-145)
[2021-11-30 11:26] LABS: CALCIUM 9.4 MG/DL (8.5-10.1)
[2021-11-30 11:27] LABS: GLUCOSE 98 MG/DL (70-105); TOTAL PROTEIN 7.5 GM/DL (6.4-8.2)
[2021-11-30 11:28] LABS: BACTERIA,URINE FEW /HPF
[2021-11-30 11:28] LABS: CARBON DIOXIDE 26 MMOL/L (21-32)
[2021-11-30 11:29] LABS: BILIRUBIN,TOTAL 0.6 MG/DL (0.1-1.0)
--- NOTE | 2021-11-30 11:29 | Diagnostic Imaging Report ---
PROCEDURE: CT urinary tract, rule out kidney stone. TECHNIQUE: Multiple contiguous axial images were obtained through the abdomen and pelvis without the use of intravenous contrast. Auto Exposure Controls were utilized during the CT exam to meet ALARA standards for radiation dose reduction. INDICATION: Left lower abdominal pain. Patient's history of kidney stones. Correlation is made with prior CT 06/28/2021. The lung bases are clear. Liver and gallbladder are unremarkable. No biliary duct dilatation is seen. The pancreas and spleen are unremarkable. No adrenal mass is detected. Punctate nonobstructing calculus lower pole left kidney is again noted. Right kidney is unremarkable. There is no hydronephrosis. No ureteral or bladder calculi are seen. Aorta is nonaneurysmal. Bowel loops are nonobstructed. No inflammatory changes are seen. The uterus and ovaries are unremarkable. No free fluid or fluid collection. IMPRESSION: Tiny nonobstructing left renal calculus. No ureteral calculi or hydronephrosis is identified. No acute feature is detected. Dictated by: Dictated on workstation # [id number]
[2021-11-30 11:30] LABS: ALKALINE PHOSPHATASE 55 U/L (40-136); GFR ESTIMATED 106
[2021-11-30] MEDS ORDERED: cefTRIAXone 1 GM PRE-MIX 50 ML IV ONE (11:30)
[2021-11-30 11:31] LABS: BUN/CREATININE RATIO 13
[2021-11-30 11:33] LABS: ALANINE AMINOTRANSFERASE 34 U/L (0-55)
--- NOTE | 2021-11-30 11:38 | Diagnostic Imaging Report ---
INDICATION: Left ureteral stone. Supine images of the abdomen are obtained. Comparison is made to study of 05/03/2021. FINDINGS: Bowel gas pattern is unremarkable. There is no evidence of free intraperitoneal gas or pneumatosis. There is no pathologic abdominal calcification seen. No obstruction is noted. IMPRESSION: No acute abnormality. Dictated by: Dictated on workstation # [id number]
[2021-11-30] MEDS ORDERED: PHEN-639 PO (11:43)
[2021-11-30] MEDS ORDERED: CEFU250T80 PO (11:43)
[2021-11-30] MEDS ORDERED: oxyCODONE/APAP 5/325MG (PERCOCET 5) TABLET PO ONE (12:15)
[2021-11-30 12:31] VITALS: BP 129/82
== END 2021-11-30 12:33 | disposition home or self-care (01) ==
LOC: EDUNIT# 10:22 → ER 10:24
DX: N39.0 Urinary tract infection, site not specified (principal)
CPT/HCPCS: 36415; 74018; 74176; 80053; 81000; 84703; 85025; 87088

== ENCOUNTER → 2022-01-19 | Outpatient (CLI) | payer SELFPAY ==
[~2022-01-19] MED LIST changes: +CEFU250T80 PO; +PHEN-639 PO
--- NOTE | 2022-01-19 11:57 | Diagnostic Imaging Report ---
PROCEDURE: MR imaging cervical spine without contrast. TECHNIQUE: Multiplanar, multisequence MR imaging of the cervical spine was performed without contrast. INDICATION: Right shoulder pain. No prior studies are available for comparison. Curvature and alignment of the cervical spine is normal. Vertebral body marrow signal is normal. There is fairly normal height and signal intensity to the cervical intervertebral discs. The cervical cord does show normal homogeneous signal intensity and normal morphology. Craniocervical junction is unremarkable. C2-C3: Central canal and neural foramina are widely patent. C3-C4: Central canal and neural foramina are widely patent. C4-C5: Endplate osteophytes indent the ventral thecal sac but no central canal or neural foraminal narrowing is detected. C5-C6: There is a wide-based right paramidline disc/osteophyte complex indenting the ventral thecal sac. This does result in narrowing of the right lateral recess as well. The neural foramina are patent. C6-C7: Central canal and neural foramina are widely patent. C7-T1: Central canal and neural foramina are widely patent. Paraspinous tissues are unremarkable. IMPRESSION: There is a wide-based right paramidline disc bulge C5-C6 level resulting in narrowing of the right lateral recess. No significant central canal or neural foraminal narrowing is detected. Dictated by: Dictated on workstation # [id number]
== END ==
LOC: RAD 10:15
PROVIDERS: ATTEND Chiropractor
DX: M50.13 Cervical disc disorder with radiculopathy, cervicothoracic region (principal); M48.02 Spinal stenosis, cervical region
CPT/HCPCS: 72141

== ENCOUNTER 2023-04-01 18:42 | Emergency (ER) | payer BC ==
[~2023-04-01] VITALS: Ht 160 cm; Wt 117.9 kg
[2023-04-01] MEDS ORDERED: NS IV 1000 ML 1,000 ML IV STA (19:14)
[2023-04-01] MEDS ORDERED: ONDANSETRON 4 MG/2 ML (SDV) Z0FRAN IVP ONE (19:15)
[2023-04-01] MEDS ORDERED: KETOROLAC 30 MG/ML VIAL IVP ONE (19:15)
--- NOTE | 2023-04-01 19:19 | ED Abdominal Pain ---
General Chief Complaint: Abdominal/GI Problems Stated Complaint: VOMITING/HAND SWELLING Source of Information: Patient Exam Limitations: No Limitations History of Present Illness Date Seen by Provider: April 01, 2023 Time Seen by Provider: 19:16 Initial Comments Patient is a 22-year-old female presents ED with nausea vomiting headache d iarrhea. Symptoms started 2 days ago. 3-4 episodes of vomiting and diarrhea daily. Denies any blood or mucousy stool, hematemesis or vomiting bile. Denies of any abdominal pain. Reports generalized head pain with some mild ear pain. Denies cough, runny nose, sore throat, chest pain. Reports normal urination. Not concern for . Woke up this morning with pain shooting from her dorsum hand bilateral to her elbow. Pain with any movement. Denies history of similar symptoms. No history of autoimmune disease, inflammatory disease. She states her hands feel swollen. Denies of any knee, ankle, toe pain, hip pain, fever, chills, Allergies and Home Medications Allergies Coded Allergies: morphine (Verified Allergy, Severe, 05/03/21) stops breathing acetaminophen (Verified Allergy, Unknown, rash, 05/03/21) cariprazine (Verified Allergy, Unknown, 04/01/23) hydrocodone (Verified Allergy, Unknown, rash, 05/03/21) Patient Home Medication List Home Medication List Reviewed: Yes Cefuroxime Axetil (Cefuroxime) 250 Mg Tablet, 250 MG PO BID Prescribed by: MINNIE MERCER on 11/30/21 1143 Cephalexin (Cephalexin) 500 Mg Tablet, 500 MG PO BID Prescribed by: SUNDEEP JAIME on 06/28/212236 Ketorolac Tromethamine (Ketorolac Tromethamine) 10 Mg Tablet, 10 MG PO TID Prescribed by: RIANNA PRUITT on 04/01/232046 Phenazopyridine HCl (Pyridium) 100 Mg Tablet, 100 MG PO TID Prescribed by: MINNIE MERCER on 11/30/21 1143 Review of Systems Review of Systems Constitutional: No chills, No diaphoresis, No fever, No malaise, No weakness Respiratory: Denies Cough, Denies Orthopnea, Denies Shortness of Air Cardiovascular: Denies Chest Pain Gastrointestinal: Denies Abdominal Pain, Denies Blood Streaked Stools; Diarrhea, Nausea, Vomiting Genitourinary: Denies Burning, Denies Discharge Musculoskeletal: No back pain, No joint pain; joint swelling, muscle pain Skin: No change in color, No change in hair/nails All Other Systems Reviewed Negative Unless Noted: Yes Past Fpqdzfu-Rhgjvt-Dnfurn Hx Patient Social History Tobacco Use?: No Smoking Status: Never a Smoker Smokeless Tobacco Frequency: Never a User Use of E-Cig and/or Vaping dev: No Use of E-Cig and/or Vaping Chase: Never a User Substance use?: No Alcohol Use?: Yes Alcohol Frequency: Once in a while Pt feels they are or have been: No Immunizations Up To Date First/Initial COVID19 Vaccinat: 04/25 Second COVID19 Vaccination Isai: 05/25 Seasonal Allergies Seasonal Allergies: No Past Medical History Surgery/Hospitalization HX: LITHOTRYPSY, T/A Surgeries: Yes Renal, Tonsillectomy Respiratory: No Cardiac: No Neurological: Yes Seizure Disorder Genitourinary: Yes Kidney Stones Gastrointestinal: Yes (H. Pylori) Gastroesophageal Reflux Musculoskeletal: No Endocrine: No HEENT: No Cancer: No Psychosocial: No Integumentary: No Blood Disorders: No Family Medical History No Pertinent Family Hx Physical Exam Vital Signs Vital Signs - First Documented 04/01/23 18:56 Temp 37.6 Pulse 90 Resp 19 B/P (MAP) 124/89 (101) O2 Delivery Room Air Capillary Refill : Height/Weight/BMI Height: 5'3.00" Weight: 180lbs. oz. 81.170114sn; 42.00 BMI Method:Stated General Appearance: WD/WN, no apparent distress HEENT: PERRL/EOMI, normal ENT inspection, TMs normal, pharynx normal Neck: non-tender, full range of motion, supple, normal inspection Respiratory: chest non-tender, lungs clear, normal breath sounds, no respiratory distress, no accessory muscle use Cardiovascular: regular rate, rhythm, no edema, no gallop, no JVD Gastrointestinal: normal bowel sounds, soft Extremities: normal range of motion, normal inspection, no pedal edema, other (Pain bilateral dorsal hands. No swelling, erythema, warmth. Neurovascular intact. Cap refill less than 2. Equal pulses bilateral. No open lesions. 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 tested, alert, normal mood/affect, oriented x 3 Progress/Results/Core Measures Results/Orders Lab Results Laboratory Tests Test 04/01/23 19:08 04/01/23 19:50 Range/Units White Blood Count 10.0 4.3-11.0 10^3/uL Red Blood Count 4.65 3.80-5.11 10^6/uL Hemoglobin 13.5 11.5-16.0 g/dL Hematocrit 40 35-52 % Mean Corpuscular Volume 85 80-99 fL Mean Corpuscular Hemoglobin 29 25-34 pg Mean Corpuscular Hemoglobin Concent 34 32-36 g/dL Red Cell Distribution Width 13.0 10.0-14.5 % Platelet Count 316 130-400 10^3/uL Mean Platelet Volume 10.3 9.0-12.2 fL Immature Granulocyte % (Auto) 0 % Neutrophils (%) (Auto) 62 42-75 % Lymphocytes (%) (Auto) 29 12-44 % Monocytes (%) (Auto) 6 0-12 % Eosinophils (%) (Auto) 3 0-10 % Basophils (%) (Auto) 0 0-10 % Neutrophils # (Auto) 6.1 1.8-7.8 10^3/uL Lymphocytes # (Auto) 2.9 1.0-4.0 10^3/uL Monocytes # (Auto) 0.6 0.0-1.0 10^3/uL Eosinophils # (Auto) 0.3 0.0-0.3 10^3/uL Basophils # (Auto) 0.0 0.0-0.1 10^3/uL Immature Granulocyte # (Auto) 0.0 0.0-0.1 10^3/uL Erythrocyte Sedimentation Rate 5 0-20 MM/HR Sodium Level 139 135-145 MMOL/L Potassium Level 3.6 3.6-5.0 MMOL/L Chloride Level 104 98-107 MMOL/L Carbon Dioxide Level 23 21-32 MMOL/L Anion Gap 12 5-14 MMOL/L Blood Urea Nitrogen 11 7-18 MG/DL Creatinine 1.02 0.60-1.30 MG/DL Estimat Glomerular Filtration Rate 79 BUN/Creatinine Ratio 11 Glucose Level 104 70-105 MG/DL Calcium Level 9.3 8.5-10.1 MG/DL Corrected Calcium 9.1 8.5-10.1 MG/DL Total Bilirubin 0.3 0.1-1.0 MG/DL Aspartate Amino Transf (AST/SGOT) 20 5-34 U/L Alanine Aminotransferase (ALT/SGPT) 34 0-55 U/L Alkaline Phosphatase 67 40-136 U/L C-Reactive Protein High Sensitivity 0.84 H 0.00-0.50 MG/DL Total Protein 7.2 6.4-8.2 GM/DL Albumin 4.3 3.2-4.5 GM/DL Urine Color YELLOW Urine Clarity CLEAR Urine pH 6.0 5-9 Urine Specific [place] 1.025 H 1.016-1.022 Urine Protein TRACE H NEGATIVE Urine Glucose (UA) NEGATIVE NEGATIVE Urine Ketones NEGATIVE NEGATIVE Urine Nitrite NEGATIVE NEGATIVE Urine Bilirubin NEGATIVE NEGATIVE Urine Urobilinogen 1.0 < = 1.0 MG/DL Urine Leukocyte Esterase 1+ H NEGATIVE Urine RBC (Auto) NEGATIVE NEGATIVE Urine RBC NONE /HPF Urine WBC 5-10 H /HPF Urine Squamous Epithelial Cells 5-10 /HPF Urine Crystals NONE /LPF Urine Bacteria LARGE H /HPF Urine Casts NONE /LPF Urine Mucus MODERATE H /LPF Urine Culture Indicated YES Urine Test NEGATIVE NEGATIVE My Orders Orders - TONY GONZALEZ Cbc With Automated Diff (04/01/23 19:14) Comprehensive Metabolic Panel (04/01/23 19:14) Hs C Reactive Protein (04/01/23 19:14) Erythrocyte Sedimentation Rate (04/01/23 19:14) Ua Culture If Indicated (04/01/23 19:14) Ns Iv 1000 Ml (Sodium Chloride 0.9%) (04/01/23 19:14) Ondansetron Injection (Zofran Injectio (04/01/23 19:15) Hcg,Qualitative Urine (04/01/23 19:14) Ketorolac Injection (Toradol Injection) (04/01/23 19:15) Fentanyl Inj (Sublimaze Injection) (04/01/23 19:58) Morphine Injection (Morphine Injection (04/01/23 19:57) Urine Culture (04/01/23 19:50) Medications Given in ED Current Medications Medications Dose Ordered Sig/Sushant Route Start Time Stop Time Status Last Admin Dose Admin Ketorolac Tromethamine 30 mg ONCE ONCE IVP 04/01/23 19:15 5/28/23 19:16 DC 04/01/23 19:22 30 MG Ondansetron HCl 4 mg ONCE ONCE IVP 04/01/23 19:15 04/01/23 19:16 DC 04/01/23 19:22 4 MG Vital Signs/I&O 04/01/23 18:56 Temp 37.6 Pulse 90 Resp 19 B/P (MAP) 124/89 (101) O2 Delivery Room Air Departure Communication (PCP) Patient bilateral hand pain that radiates to the elbows. Concern for hand swelling. No history of autoimmune diseases, vasculitis. On exam no significant swelling, redness or swelling. Pain with any type of movement of the hands and wrist. Pain is located dorsum hands bilateral. Due to complaint concern for swelling CBC, CMP, CRP, ESR was ordered. Lab work grossly unremarkable. Normal kidney function. no evidence compartment syndrome. Ne urovascular intact. No evidence of vasculitis. Good pulses distally. This does not appear to be a reactive arthritis or inflammatory arthritis. Patient is concern for carpal tunnel. She has no pain on the volar side where I typical see carpal tunnel. Negative phalen and tinel sign. 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 She states her hand does go numb at night. Discussed wearing Velcro splints for comfort. Outpatient follow-up. Likely benefit with the EMG. No emergent findings at this time. Will discharge with anti-inflammatories. She did receive Toradol here with improvement of pain. Will discharge with Toradol for a few days. Outpatient orthopedic follow-up. Return precaution were discussed. Impression Primary Impression: Hand pain Disposition: 01 HOME, SELF-CARE Condition: Stable Departure-Patient Inst. Decision time for Depature: 20:46 Referrals: [facility] [place] PHYSICIAN (PCP) Primary Care Physician Patient Instructions: Hand pain Add. Discharge Instructions: Recommend following up with your primary care physician for further evaluation. Orthopedic outpatient follow-up. All discharge instructions reviewed with patient and/or family. Voiced understanding. Scripts Ketorolac Tromethamine (Ketorolac Tromethamine) 10 Mg Tablet 10 MG PO TID for 5 Days, #15 TAB Prov: TONY GONZALEZ 04/01/23 TONY GONZALEZ April 01, 2023 19:19
[2023-04-01 19:20] LABS: BASOPHILS % (AUTO) 0 % (0-10); EOSINOPHILS # (AUTO) 0.3 10^3/uL (0.0-0.3); EOSINOPHILS % (AUTO) 3 % (0-10); HEMATOCRIT 40 % (35-52); HEMOGLOBIN 13.5 g/dL (11.5-16.0); LYMPHOCYTES # (AUTO) 2.9 10^3/uL (1.0-4.0); LYMPHOCYTES % (AUTO) 29 % (12-44); MEAN CORPUSCULAR HEMOGLOBIN 29 pg (25-34); MEAN CORPUSCULAR HGB CONC 34 g/dL (32-36); MEAN CORPUSCULAR VOLUME 85 fL (80-99); MEAN PLATELET VOLUME 10.3 fL (9.0-12.2); MONOCYTES # (AUTO) 0.6 10^3/uL (0.0-1.0); MONOCYTES % (AUTO) 6 % (0-12); NEUTROPHILS # (AUTO) 6.1 10^3/uL (1.8-7.8); NEUTROPHILS % (AUTO) 62 % (42-75); PLATELET COUNT 316 10^3/uL (130-400)
[2023-04-01 19:25] LABS: ALBUMIN 4.3 GM/DL (3.2-4.5)
[2023-04-01 19:26] LABS: POTASSIUM 3.6 MMOL/L (3.6-5.0)
[2023-04-01 19:27] LABS: CALCIUM 9.3 MG/DL (8.5-10.1)
[2023-04-01 19:28] LABS: TOTAL PROTEIN 7.2 GM/DL (6.4-8.2)
[2023-04-01 19:30] LABS: BILIRUBIN,TOTAL 0.3 MG/DL (0.1-1.0)
[2023-04-01 19:38] LABS: ERYTHROCYTE SEDIMENTATION RATE 5 MM/HR (0-20)
[2023-04-01 19:50] LABS: CREATININE SERUM 1.02 MG/DL (0.60-1.30)
[2023-04-01] MEDS ORDERED: morphine INJ 10 MG/ML 1ML (SYR OR VIAL) ONE (19:57)
[2023-04-01] MEDS ORDERED: fentaNYL INJ 100 MCG/2 ML AMP IVP STA (19:58)
[2023-04-01 20:01] LABS: BILIRUBIN,URINE NEGATIVE (NEGATIVE); CLARITY,URINE CLEAR; COLOR,URINE YELLOW; GLUCOSE, URINE (UA) NEGATIVE (NEGATIVE); KETONES,URINE NEGATIVE (NEGATIVE); LEUKOCYTE ESTERASE ,URINE 1+ (NEGATIVE); NITRITE,URINE NEGATIVE (NEGATIVE); PROTEIN,URINE TRACE (NEGATIVE)
[2023-04-01 20:12] LABS: BACTERIA,URINE LARGE /HPF
[2023-04-01] MEDS ORDERED: KETO10TA PO (20:47)
[2023-04-01 20:51] VITALS: BP 139/83
== END 2023-04-01 20:51 | disposition home or self-care (01) ==
LOC: EDUNIT# 18:42 → ER 18:45
DX: M79.641 Pain in right hand (principal); M79.642 Pain in left hand; Z88.6 Allergy status to analgesic agent
CPT/HCPCS: 36415; 80053; 81000; 84703; 85025; 85652; 86141; 87088

== ENCOUNTER 2023-05-13 04:41 | Emergency (ER) | payer BC ==
[~2023-05-13] VITALS: Ht 160 cm; Wt 117.9 kg
[~2023-05-13 04:41] MED LIST changes: +KETO10TA PO
--- NOTE | 2023-05-13 05:12 | ED Headache ---
General Chief Complaint: Head/Cervical Problems Stated Complaint: MIGRAINE Nursing Triage Note: LEFT FRONTAL HEADACHE X2 DAY Source: patient History of Present Illness Date Seen by Provider: May 13, 2023 Time Seen by Provider: 04:57 Initial Comments PT ARRIVES VIA POV FROM HOME C/O "MIGRAINE" SINCE SUNDAY NIGHT PAIN IS AROUND LEFT EYE AND IS CONSTANT STATES SHE HAS HAD INTERMITTENT DIZZINESS AND BLURRY VISION WITH BOTH EYES--NOT NOW C/O NAUSEA AND VOMITING. HAS VOMITED 9 TIMES IN THE LAST 12 HOURS HAS CHRONIC HISTORY OF THESE SAME HEADACHES--GETS HEADACHES ABOUT ONCE A WEEK. SHE IS NOT ON ANY DAILY OR PRN HEADACHE MEDICATION SHE TOOK TYLENOL AT 2330 TONIGHT. SHE HAS ALSO TAKEN ALEVE AND MOTRIN SINCE YESTERDAY NO FEVER NO URI / SINUS / ALLERGY SYMPTOMS NO NECK PAIN OR STIFFNESS NO PARESTHESIAS OR MOTOR DEFICITS SHE HAS NOT SOUGHT CARE UNTIL NOW. SYMPTOMS NO DIFFERENT, JUST HAVE BEEN PERSISTENT LMP 05/03/23. NORMAL. NO OTHER CHRONIC MEDICAL PROBLEMS. NO DAILY MEDICATIONS. PCP: [facility] Allergies and Home Medications Allergies Coded Allergies: morphine (Verified Allergy, Severe, 05/03/21) stops breathing acetaminophen (Verified Allergy, Unknown, rash, 05/03/21) cariprazine (Verified Allergy, Unknown, 04/01/23) hydrocodone (Verified Allergy, Unknown, rash, 05/03/21) Patient Home Medication List Home Medication List Reviewed: Yes Butalb/Acetaminophen/Caffeine (Esgic 50-325-40 mg Tablet) 50 Mg-325 Mg-40 Mg Tablet, 1-2 EACH PO Q6 Prescribed by: BRICE NAQVI on 05/13/23515 Ketorolac Tromethamine (Ketorolac Tromethamine) 10 Mg Tablet, 10 MG PO Q6H Prescribed by: BRICE NAQVI on 05/13/23515 Ondansetron (Ondansetron Odt) 8 Mg Tab.rapdis, 8 MG PO Q6H Prescribed by: BRICE NAQVI on 05/13/23515 Discontinued Medications Cefuroxime Axetil (Cefuroxime) 250 Mg Tablet, 250 MG PO BID Discontinued Reason: No Longer Taking Prescribed by: MINNIE MERCER on 11/30/21 1143 Last Action: Discontinued Cephalexin (Cephalexin) 500 Mg Tablet, 500 MG PO BID Discontinued Reason: No Longer Taking Prescribed by: SUNDEEP JAIME on 06/28/212236 Last Action: Discontinued Ketorolac Tromethamine (Ketorolac Tromethamine) 10 Mg Tablet, 10 MG PO TID Discontinued Reason: No Longer Taking Prescribed by: RIANNA PRUITT on 04/01/232046 Last Action: Discontinued Phenazopyridine HCl (Pyridium) 100 Mg Tablet, 100 MG PO TID Discontinued Reason: No Longer Taking Prescribed by: MINNIE MERCER on 11/30/21 114 Last Action: Discontinued Review of Systems Review of Systems Constitutional: no symptoms reported Eyes: See HPI Ears, Nose, Mouth, Throat: no symptoms reported Respiratory: no symptoms reported Cardiovascular: no symptoms reported Gastrointestinal: see HPI; No abdominal pain; nausea, vomiting Genitourinary: no symptoms reported : No LMP: May 03, 2023 Musculoskeletal: no symptoms reported; No neck pain Skin: no symptoms reported; No rash Psychiatric/Neurological: See HPI, Headache Past Zkpvduk-Yjeroe-Szltap Hx Patient Social History Tobacco Use?: No Substance use?: No Alcohol Use?: No Pt feels they are or have been: No Immunizations Up To Date First/Initial COVID19 Vaccinat: 04/25 Second COVID19 Vaccination Isai: 05/25 Seasonal Allergies Seasonal Allergies: No Past Medical History Surgery/Hospitalization HX: LITHOTRYPSY, T/A, CHOLECYSTECTOMY Surgeries: Yes Adenoidectomy, Gallbladder, Renal, Tonsillectomy Respiratory: No Cardiac: No Neurological: Yes Headaches /Migraines, Seizure Disorder : No Genitourinary: Yes Kidney Stones Gastrointestinal: Yes (H. Pylori) Gastroesophageal Reflux Musculoskeletal: No Endocrine: No HEENT: No Cancer: No Psychosocial: No Integumentary: No Blood Disorders: No Family Medical History No Pertinent Family Hx Physical Exam Vital Signs Vital Signs - First Documented 05/13/23 04:54 Temp 37.0 Pulse 88 Resp 16 B/P (MAP) 149/89 (109) Pulse Ox 98 O2 Delivery Room Air Capillary Refill : Less Than 3 Seconds Height, Weight, BMI Height: 5'3.00" Weight: 180lbs. oz. 81.160715pc; 46.00 BMI Method:Stated General Appearance: WD/WN, no apparent distress, other (HEAD POSITIONED OVER TRASH CAN, BUT IS NOT DRY HEAVING OR VOMITING. ) HEENT: PERRL/EOMI, normal ENT inspection, TMs normal, pharynx normal; No ph otophobia; other (SOME TENDERNESS TO LEFT BROW, AND LEFT NASAL AREA. NO MAXILLARY TENDERNESS. NO TEMPORAL ARTERY TENDERNESS OR SWELLING/INFLAMMATION) Neck: non-tender, full range of motion, supple, normal inspection Cardiovascular: regular rate, rhythm, no murmur Respiratory: normal breath sounds Gastrointestinal: non tender, soft Extremities: normal inspection Psychiatric: alert, oriented x 3 Crainal Nerves: normal hearing, normal speech, PERRL Coordination/Gait: normal gait Motor/Sensory: no motor deficit, no sensory deficit Skin: normal color, warm/dry; No rash Progress/Results/Core Measures Results/Orders My Orders Orders - BRICE NAQVI DO Ketorolac Injection (Toradol Injection) (05/13/23 05:15) Promethazine Injection (Phenergan Injec (05/13/23 05:15) Diphenhydramine Injection (Benadryl Inje (05/13/23 05:15) Medications Given in ED Current Medications Medications Dose Ordered Sig/Sushant Route Start Time Stop Time Status Last Admin Dose Admin Diphenhydramine HCl 50 mg ONCE ONCE IM 05/13/23 05:15 05/13/23 05:16 DC 05/13/23 05:18 50 MG Ketorolac Tromethamine 60 mg ONCE ONCE IM 05/13/23 05:15 05/13/23 05:16 DC 05/13/23 05:18 60 MG Promethazine HCl 25 mg ONCE ONCE IM 05/13/23 05:15 05/13/23 05:16 DC 05/13/23 05:18 25 MG Vital Signs/I&O 05/13/23 04:54 Temp 37.0 Pulse 88 Resp 16 B/P (MAP) 149/89 (109) Pulse Ox 98 O2 Delivery Room Air Blood Pressure Mean: 109 Progress Progress Note : Progress Note GIVEN: -TORADOL -PHENERGAN -BENADRYL SYMPTOMS IMPROVED--NAUSEA IS GONE, AND HEADACHE BEGINNING TO EASE AT DISMISSAL VITALS STABLE. NO DETERIORATION IN PT'S CONDITION DURING ER STAY DISCUSSED ANTICIPATED COURSE, SYMPTOMATIC TREATMENT, MEDICATIONS, NEED FOR FOLLOW UP AND RETURN PRECAUTIONS Departure Impression Primary Impression: Migraine Disposition: 01 HOME, SELF-CARE Condition: Stable Departure-Patient Inst. Decision time for Depature: 05:14 Referrals: NO,LOCAL PHYSICIAN (PCP/Family) Primary Care Physician Patient Instructions: Migraines (DC) Add. Discharge Instructions: HOME, REST CLEAR LIQUIDS--WATER, BROTH, JELLO, GATORADE FOLLOW UP WITH [facility] IN 1-2 DAYS IF NO BETTER, RETURN TO ER IF WORSE All discharge instructions reviewed with patient and/or family. Voiced understanding. Scripts Ketorolac Tromethamine (Ketorolac Tromethamine) 10 Mg Tablet 10 MG PO Q6H for Pain, #15 TAB Prov: BRICE NAQVI DO 05/13/23 Butalb/Acetaminophen/Caffeine (Esgic 50-325-40 mg Tablet) 50 Mg-325 Mg-40 Mg Tablet 1-2 EACH PO Q6, #12 TAB Prov: BRICE NAQVI DO 05/13/23 Ondansetron (Ondansetron Odt) 8 Mg Tab.rapdis 8 MG PO Q6H, #10 TAB Prov: BRICE NAQVI DO 05/13/23 BRICE NAQVI DO May 13, 2023 05:12
[2023-05-13] MEDS ORDERED: diphenhydrAMINE 50 MG/ML INJ (BENADRYL) IM ONE (05:15)
[2023-05-13] MEDS ORDERED: PROMETHAZINE INJ 25 MG/ML (PHENERGAN) AMP IM ONE (05:15)
[2023-05-13] MEDS ORDERED: KETOROLAC 60 MG/2 ML VIAL IM ONE (05:15)
[2023-05-13] MEDS ORDERED: KETO10TA PO (05:16)
[2023-05-13] MEDS ORDERED: BUTA-249 PO (05:16)
[2023-05-13] MEDS ORDERED: ONDA8TAB13 PO (05:16)
[2023-05-13 05:50] VITALS: BP 136/79
== END 2023-05-13 05:51 | disposition home or self-care (01) ==
LOC: EDUNIT# 04:41 → ER 04:44
DX: G43.909 Migraine, unspecified, not intractable, without status migrainosus (principal); Z88.6 Allergy status to analgesic agent
CPT/HCPCS: 99284

== ENCOUNTER 2023-05-20 22:49 | Emergency (ER) | payer BC, OTHER ==
[~2023-05-20] VITALS: Ht 160 cm; Wt 120.0 kg
[~2023-05-20 22:49] MED LIST changes: +BUTA-249 PO; +ONDA8TAB13 PO
--- NOTE | 2023-05-20 23:03 | ED Headache ---
General Chief Complaint: Head/Cervical Problems Stated Complaint: MIGRAINE/VOMITING/NIGHT SWEATS/SHAKEY Source: patient Exam Limitations: no limitations History of Present Illness Date Seen by Provider: May 20, 2023 Time Seen by Provider: 23:02 Initial Comments Patient is a 22yo female who presents to the ER with chief complaint of global headache. Onset about a week ago. Was seen in the ER last Sunday morning and given "3 shots" for the headache. She states they did not help at all. She was given prescriptions to fill - but she states the doctor told her it was the same thing she was given shots of, and says since they didnt help in the ER she decided not to fill them. SHe states the headache is worse. Light intensifies the pain. SHe is having neck pain and nausea and dry heaves. Endorses subjective fevers and chills (sweating and feeling "cold"). Has been taking excedrin, tylenol, ibuprofen and alleve alternating. Describes heart-burn type symptoms as well. No visual changes, speech difficulties. No unilateral numbness, weakness or tingling. Has never had a headache last this long before. It is not worsened by position changes and it does not change in severity as the day progresses. Timing/Duration: 1 week, constant Severity/Quality: severe, other ("feels like my head is being slammed into a rock") Location: global Prior Headaches/Recent Trauma: occasional headaches Modifying Factors: worse with exposure to light Associated Symptoms: nausea/vomiting, stiff neck Allergies and Home Medications Allergies Coded Allergies: morphine (Verified Allergy, Severe, 05/03/21) stops breathing acetaminophen (Verified Allergy, Unknown, rash, 05/03/21) cariprazine (Verified Allergy, Unknown, 04/01/23) hydrocodone (Verified Allergy, Unknown, rash, 05/03/21) Patient Home Medication List Home Medication List Reviewed: Yes Butalb/Acetaminophen/Caffeine (Esgic 50-325-40 mg Tablet) 50 Mg-325 Mg-40 Mg Tablet, 1-2 EACH PO Q6 Prescribed by: BRICE NAQVI on 05/13/23 0516 Ketorolac Tromethamine (Ketorolac Tromethamine) 10 Mg Tablet, 10 MG PO Q6H Prescribed by: BRICE NAQVI on 05/13/23515 Ondansetron (Ondansetron Odt) 8 Mg Tab.rapdis, 8 MG PO Q6H Prescribed by: BRICE NAQVI on 05/13/23 0516 Sumatriptan Succinate (Imitrex) 100 Mg Tablet, 100 MG PO ONCE PRN for MIgraine Prescribed by: YANY WHITAKER on 05/21/23 0035 Review of Systems Review of Systems Constitutional: see HPI Eyes: No Symptoms Reported Ears, Nose, Mouth, Throat: no symptoms reported Respiratory: no symptoms reported Cardiovascular: no symptoms reported Gastrointestinal: nausea, vomiting Genitourinary: no symptoms reported LMP: Apr 28, 2023 Musculoskeletal: neck pain Psychiatric/Neurological: Headache, Weakness All Other Systems Reviewed Negative Unless Noted: Yes Past Ilqozld-Ickigd-Oqqbpy Hx Immunizations Up To Date First/Initial COVID19 Vaccinat: 04/25 Second COVID19 Vaccination Isai: 05/25 Seasonal Allergies Seasonal Allergies: No Past Medical History Surgery/Hospitalization HX: LITHOTRYPSY, T/A, CHOLECYSTECTOMY Surgeries: Yes Adenoidectomy, Gallbladder, Renal, Tonsillectomy Respiratory: No Cardiac: No Neurological: Yes Headaches /Migraines, Seizure Disorder Genitourinary: Yes Kidney Stones Gastrointestinal: Yes (H. Pylori) Gastroesophageal Reflux Musculoskeletal: No Endocrine: No HEENT: No Cancer: No Psychosocial: No Integumentary: No Blood Disorders: No Family Medical History No Pertinent Family Hx Physical Exam Vital Signs Vital Signs - First Documented 05/20/23 23:05 Temp 37.0 Pulse 92 Resp 20 B/P (MAP) 111/93 (99) Pulse Ox 97 O2 Delivery Room Air Capillary Refill : Height, Weight, BMI Height: 5'3.00" Weight: 180lbs. oz. 81.762048gk; 46.00 BMI Method:Stated General Appearance: WD/WN, mild distress, obese HEENT: PERRL/EOMI, normal ENT inspection, pharynx normal Neck: full range of motion, supple, other (muscle tenderness to the paraspinous musculature) Cardiovascular: regular rate, rhythm Respiratory: lungs clear, normal breath sounds, no respiratory distress, no accessory muscle use Back: normal inspection Extremities: normal range of motion, normal inspection Psychiatric: alert, oriented x 3 Crainal Nerves: normal hearing, normal speech, PERRL Coordination/Gait: normal finger to nose ((slow and deliberate - no past pointing)), normal gait Motor/Sensory: no motor deficit, no sensory deficit Skin: normal color, warm/dry Progress/Results/Core Measures Results/Orders Lab Results Laboratory Tests Test 05/20/23 23:14 Range/Units Sodium Level 139 135-145 MMOL/L Potassium Level 3.6 3.6-5.0 MMOL/L Chloride Level 104 98-107 MMOL/L Carbon Dioxide Level 25 21-32 MMOL/L Anion Gap 10 5-14 MMOL/L Blood Urea Nitrogen 11 7-18 MG/DL Creatinine 0.87 0.60-1.30 MG/DL Estimat Glomerular Filtration Rate 95 BUN/Creatinine Ratio 13 Glucose Level 91 70-105 MG/DL Calcium Level 9.9 8.5-10.1 MG/DL My Orders Orders - YANY WHITAKER MD Ed Iv/Invasive Line Start (05/20/23 23:11) Basic Metabolic Panel (05/20/23 23:11) Sumatriptan Injection (Imitrex Injection (05/20/23 23:15) Metoclopramide Injection (Reglan Injecti (05/20/23 23:15) Diphenhydramine Injection (Benadryl Inje (05/20/23 23:15) Medications Given in ED Current Medications Medications Dose Ordered Sig/Sushant Route Start Time Stop Time Status Last Admin Dose Admin Diphenhydramine HCl 25 mg ONCE ONCE IVP 05/20/23 23:15 05/20/23 23:16 DC 05/20/23 23:25 25 MG Metoclopramide HCl 10 mg ONCE ONCE IVP 05/20/23 23:15 05/20/23 23:16 DC 05/20/23 23:24 10 MG Sumatriptan Succinate 6 mg ONCE ONCE SQ 05/20/23 23:15 05/20/23 23:16 DC 05/20/23 23:23 6 MG Vital Signs/I&O 05/20/23 23:05 Temp 37.0 Pulse 92 Resp 20 B/P (MAP) 111/93 (99) Pulse Ox 97 O2 Delivery Room Air Progress Progress Note : Time: 00:32 Progress Note Headache completely resolved on d/c. Departure Impression Primary Impression: Headache Qualified Codes: R51.9 - Headache, unspecified Disposition: 01 HOME, SELF-CARE Condition: Improved Departure-Patient Inst. Decision time for Depature: 00:32 Referrals: NO,LOCAL PHYSICIAN (PCP/Family) Primary Care Physician Patient Instructions: Headache, Adult, LOCAL PHYSICIAN LIST Add. Discharge Instructions: Drink plenty of fluids to stay well hydrated. Try and decrease your use of Ibuprofen and Alleve/naproxen as this can irritate your stomach and kidneys. Imitrex 100mg at headache onset. May repeat x1 in 2 hours if no relief. Max of 2 tablets in 24hr. Return to the Emergency Department for any new, emergent or concerning symptoms. Scripts Sumatriptan Succinate (Imitrex) 100 Mg Tablet 100 MG PO ONCE PRN for MIgraine, #9 TAB May repeat x1 in 2 hours, for max of 200mg in 24 hours Prov: YANY WHITAKER MD 05/21/23 Work/School Note: Work Release Form Date Seen in the Emergency Department: May 20, 2023 Return to Work: May 22, 2023 YANY WHITAKER MD May 20, 2023 23:03
[2023-05-20 23:05] VITALS: BP 111/93
[2023-05-20] MEDS ORDERED: SUMAtriptan 6 MG/0.5 ML (IMITREX) INJ SQ ONE (23:15)
[2023-05-20] MEDS ORDERED: METOCLOPRAMIDE INJ 10 MG/2 ML (REGLAN) IVP ONE (23:15)
[2023-05-20] MEDS ORDERED: diphenhydrAMINE 50 MG/ML INJ (BENADRYL) IVP ONE (23:15)
[2023-05-20 23:28] LABS: POTASSIUM 3.6 MMOL/L (3.6-5.0)
[2023-05-20 23:29] LABS: CALCIUM 9.9 MG/DL (8.5-10.1)
[2023-05-20 23:34] LABS: CREATININE SERUM 0.87 MG/DL (0.60-1.30)
[2023-05-21] MEDS ORDERED: SUMA100T2 PO (00:35)
== END 2023-05-21 00:47 | disposition home or self-care (01) ==
LOC: EDUNIT# 22:49 → ER 22:52
DX: R51.9 Headache, unspecified (principal); E66.9 Obesity, unspecified; Z68.42 Body mass index [BMI] 45.0-49.9, adult; Z86.69 Personal history of other diseases of the nervous system and sense organs; Z28.310 Unvaccinated for COVID-19
CPT/HCPCS: 36415; 80048

== ENCOUNTER 2023-06-15 19:41 | Emergency (ER) | payer OTHER ==
[~2023-06-15] VITALS: Ht 160 cm; Wt 117.6 kg
[~2023-06-15 19:41] MED LIST changes: +SUMA100T2 PO
[2023-06-15 20:10] LABS: BASOPHILS % (AUTO) 0 % (0-10); EOSINOPHILS # (AUTO) 0.2 10^3/uL (0.0-0.3); EOSINOPHILS % (AUTO) 2 % (0-10); HEMATOCRIT 38 % (35-52); HEMOGLOBIN 12.6 g/dL (11.5-16.0); LYMPHOCYTES # (AUTO) 2.6 10^3/uL (1.0-4.0); LYMPHOCYTES % (AUTO) 25 % (12-44); MEAN CORPUSCULAR HEMOGLOBIN 29 pg (25-34); MEAN CORPUSCULAR HGB CONC 33 g/dL (32-36); MEAN CORPUSCULAR VOLUME 87 fL (80-99); MONOCYTES # (AUTO) 0.7 10^3/uL (0.0-1.0); MONOCYTES % (AUTO) 7 % (0-12); NEUTROPHILS # (AUTO) 6.9 10^3/uL (1.8-7.8); NEUTROPHILS % (AUTO) 66 % (42-75); PLATELET COUNT 273 10^3/uL (130-400); WHITE BLOOD COUNT 10.5 10^3/uL (4.3-11.0)
--- NOTE | 2023-06-15 20:10 | ED GU-Female ---
General Chief Complaint: Abdominal/GI Problems Stated Complaint: KIDNEY PAIN/UNABLE TO URINATE Nursing Triage Note: LEFT LOWER BACK PAIN RADIATING TO LEFT ABDOMIN. REPORTS PAIN SIMILIAR TO PREVIOUS KIDNEY STONES. Source: patient, old records History of Present Illness Date Seen by Provider: Jun 15, 2023 Time Seen by Provider: 19:45 Initial Comments PT ARRIVES VIA POV FROM HOME PT STATES FOR THE LAST MONTH SHE HAS HAD PAIN IN HER LEFT KIDNEY RADIATING AROUN D TO HER LEFT MID AND LOWER ABDOMEN PT STATES SHE HAS HAD KIDNEY STONES, AND HAD TO HAVE ONE REMOVED IN [place] IN 2020 C/O URINARY FREQUENCY, URGENCY, SMALL AMOUNTS. STATES SHE HAS NOT BEEN ABLE TO URINATE AT ALL FOR THE LAST 2 DAYS-"NOT A DROP" BUT HAS HAD MUCH URGENCY TO VOID. C/O FEVER OF 99 AND CHILLS C/O NAUSEA AND VOMITED X 4 TODAY. HAD BM TODAY . SHE HAS EATEN, BUT STATES SHE VOMITS EVERY TIME SHE EATS. SHE HAS HAD 4-5 LARGE BOTTLES OF WATER TODAY SHE SAW DR. ORDAZ AT [facility] LAST WEEK AND WAS TOLD SHE HAD BLOOD IN HER URINE AND WAS PRESCRIBED FLOMAX AND AN ANTIBIOTIC SHE HAS NOT ATTEMPTED TO FOLLOW UP WITH HER OR ANYONE ELSE/ANYWHERE ELSE AT ANY TIME SINCE THEN. SHE HAS NOT TAKEN ANYTHING FOR PAIN LMP 05/05-05/09/23. NORMAL. NO CONTROL Allergies and Home Medications Allergies Coded Allergies: morphine (Verified Allergy, Severe, 05/03/21) stops breathing acetaminophen (Verified Allergy, Unknown, rash, 05/03/21) cariprazine (Verified Allergy, Unknown, 04/01/23) hydrocodone (Verified Allergy, Unknown, rash, 05/03/21) Patient Home Medication List Home Medication List Reviewed: Yes Butalb/Acetaminophen/Caffeine (Esgic 50-325-40 mg Tablet) 50 Mg-325 Mg-40 Mg Tablet, 1-2 EACH PO Q6 Prescribed by: BRICE NAQVI on 05/13/23515 Ketorolac Tromethamine (Ketorolac Tromethamine) 10 Mg Tablet, 10 MG PO Q6H Prescribed by: BRICE NAQVI on 05/13/23515 Ondansetron (Ondansetron Odt) 8 Mg Tab.rapdis, 8 MG PO Q6H Prescribed by: BRICE NAQVI on 05/13/23515 Sumatriptan Succinate (Imitrex) 100 Mg Tablet, 100 MG PO ONCE PRN for MIgraine Prescribed by: YANY WHITAKER on 05/21/23 0035 Review of Systems Review of Systems Constitutional: see HPI Respiratory: no symptoms reported Cardiovascular: no symptoms reported Gastrointestinal: see HPI Genitourinary: see HPI : No LMP: May 05, 2023 Musculoskeletal: see HPI Skin: no symptoms reported Psychiatric/Neurological: No Symptoms Reported Endocrine: No Symptoms Reported Hematologic/Lymphatic: No Symptoms Reported Past Vguzitq-Gezhas-Otllld Hx Patient Social History Tobacco Use?: No Substance use?: No Alcohol Use?: No Pt feels they are or have been: No Immunizations Up To Date First/Initial COVID19 Vaccinat: 04/25 Second COVID19 Vaccination Isai: 05/25 Third COVID19 Vaccination Date: 04/25 Seasonal Allergies Seasonal Allergies: No Past Medical History Surgery/Hospitalization HX: LITHOTRYPSY, T/A, CHOLECYSTECTOMY MUNOZ, SEIZURES, GERD, KIDNEY STONES Surgeries: Yes Adenoidectomy, Gallbladder, Renal, Tonsillectomy Respiratory: No Cardiac: No Neurological: Yes Headaches /Migraines, Seizure Disorder Last Menstrual Period: May 05, 2023 Genitourinary: Yes Bladder Infection, Kidney Stones Gastrointestinal: Yes (H. Pylori) Gastroesophageal Reflux Musculoskeletal: No Endocrine: No (OBESITY) HEENT: No Cancer: No Psychosocial: Yes Anxiety, Depression Integumentary: No Blood Disorders: No Family Medical History No Pertinent Family Hx Physical Exam Vital Signs Vital Signs - First Documented 06/15/23 19:47 Temp 36.8 Pulse 95 Resp 18 B/P (MAP) 117/84 (95) Pulse Ox 98 O2 Delivery Room Air Capillary Refill : Less Than 3 Seconds Height, Weight, BMI Height: 5'3.00" Weight: 180lbs. oz. 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, no motor/sensory deficits, alert, normal mood/affect, oriented x 3 Skin: normal color, warm/dry; No rash; tattoos/piercings (MULTIPLE TATTOOS) Progress/Results/Core Measures Suspected Sepsis SIRS Temperature: Pulse: 95 Respiratory Rate: 18 Laboratory Tests 06/15/23 20:03: White Blood Count 10.5 Blood Pressure 117 /84 Mean: 95 Laboratory Tests 06/15/23 20:03: Creatinine 0.82, Platelet Count 273, Total Bilirubin 0.4 Results/Orders Lab Results Laboratory Tests Test 06/15/23 20:03 Range/Units White Blood Count 10.5 4.3-11.0 10^3/uL Red Blood Count 4.40 3.80-5.11 10^6/uL Hemoglobin 12.6 11.5-16.0 g/dL Hematocrit 38 35-52 % Mean Corpuscular Volume 87 80-99 fL Mean Corpuscular Hemoglobin 29 25-34 pg Mean Corpuscular Hemoglobin Concent 33 32-36 g/dL Red Cell Distribution Width 12.2 10.0-14.5 % Platelet Count 273 130-400 10^3/uL Mean Platelet Volume 10.0 9.0-12.2 fL Immature Granulocyte % (Auto) 0 % Neutrophils (%) (Auto) 66 42-75 % Lymphocytes (%) (Auto) 25 12-44 % Monocytes (%) (Auto) 7 0-12 % Eosinophils (%) (Auto) 2 0-10 % Basophils (%) (Auto) 0 0-10 % Neutrophils # (Auto) 6.9 1.8-7.8 10^3/uL Lymphocytes # (Auto) 2.6 1.0-4.0 10^3/uL Monocytes # (Auto) 0.7 0.0-1.0 10^3/uL Eosinophils # (Auto) 0.2 0.0-0.3 10^3/uL Basophils # (Auto) 0.0 0.0-0.1 10^3/uL Immature Granulocyte # (Auto) 0.0 0.0-0.1 10^3/uL Sodium Level 139 135-145 MMOL/L Potassium Level 3.7 3.6-5.0 MMOL/L Chloride Level 107 98-107 MMOL/L Carbon Dioxide Level 24 21-32 MMOL/L Anion Gap 8 5-14 MMOL/L Blood Urea Nitrogen 12 7-18 MG/DL Creatinine 0.82 0.60-1.30 MG/DL Estimat Glomerular Filtration Rate 102 BUN/Creatinine Ratio 15 Glucose Level 90 70-105 MG/DL Calcium Level 9.8 8.5-10.1 MG/DL Corrected Calcium 9.5 8.5-10.1 MG/DL Total Bilirubin 0.4 0.1-1.0 MG/DL Aspartate Amino Transf (AST/SGOT) 21 5-34 U/L Alanine Aminotransferase (ALT/SGPT) 38 0-55 U/L Alkaline Phosphatase 57 40-136 U/L Total Protein 6.9 6.4-8.2 GM/DL Albumin 4.4 3.2-4.5 GM/DL Serum Test, Qualitative NEGATIVE NEGATIVE My Orders Orders - BRICE NAQVI DO Urine Bedside (06/15/23 19:45) Drug Screen Stat (Urine) (06/15/23 19:45) Ua Culture If Indicated (06/15/23 19:45) Bladder Scan (06/15/23 19:51) Ed Iv/Invasive Line Start (06/15/23 19:51) Cbc With Automated Diff (06/15/23 19:51) Comprehensive Metabolic Panel (06/15/23 19:51) Hcg,Qualitative Serum (06/15/23 19:51) Ct Abd/Pelvis Wo(Kidney Stone) (06/15/23 19:51) Abdomen/Kub 1view (06/15/23 19:51) Vital Signs/I&O 06/15/23 06/15/23 19:47 21:08 Temp 36.8 36.5 Pulse 95 87 Resp 18 16 B/P (MAP) 117/84 (95) 119/79 Pulse Ox 98 99 O2 Delivery Room Air Room Air Capillary Refill : Less Than 3 Seconds Blood Pressure Mean: 95 Progress Note : Progress Note PT UNABLE TO VOID ON ARRIVAL. BLADDER SCAN SHOWS 53 ML URINE IN BLADDER LABS: -CBC UNREMARKABLE -CMP UNREMARKABLE -HCG NEGATIVE CT SCAN AND KUB ARE UNREMARKABLE ON THE CT SCAN, IT APPEARS THAT THE BLADDER HAS A MODERATE AMOUNT OF URINE PRESENT . OFFERED TO DO CATHETER TO EMPTY BLADDER--PT REFUSES PT WILL NOT ATTEMPT TO GIVE URINE SPECIMEN SHE STATES SHE WILL JUST KEEP TAKING FLOMAX AND WANTS TO GO HOME ADVISED PT THAT SHE COULD HAVE UTI THAT IS CAUSING HER SYMPTOMS AND SHE STATES THAT SHE DID NOT HAVE UTI LAST WEEK, SO STATES SHE COULDN'T HAVE ONE THIS WEEK. DISCUSSED TEST RESULTS, ANTICIPATED COURSE, NEED FOR FOLLOW UP AND RETURN PRECAUTIONS REVIEWED PRIOR RECORDS --MULTIPLE ER VISITS FOR VARIOUS PAIN COMPLAINTS, SINGLE ADMIT MANY YEARS AGO. Diagnostic Imaging Comments PER RADIOLOGIST REPORTS AT 2100 KUB--NO ACUTE FINDINGS CT ABDOMEN/PELVIS-- COMPARISON: CT abdomen and pelvis without contrast, 11/30/2021. FINDINGS: Lung bases are clear. Diffuse fatty infiltration of the liver. Cholecystectomy. The pancreas, spleen, adrenals, kidneys, collecting systems, bladder and appendix are negative. No free intraperitoneal air or fluid. No lymphadenopathy. No evidence of bowel obstruction. Reproductive structures are grossly negative. No acute osseous finding. IMPRESSION: 1. No acute CT finding in the abdomen or pelvis. Specifically, no renal stone or hydronephrosis. 2. Hepatic steatosis. 3. Cholecystectomy. Reviewed: Reviewed by Me Departure Impression Primary Impression: Left flank pain Additional Impression: Difficulty urinating Disposition: HOME, SELF-CARE Condition: Stable Departure-Patient Inst. Decision time for Depature: 21:05 Referrals: MARVIN ORDAZ DO (PCP/Family) Primary Care Physician Patient Instructions: Flank Pain ED Add. Discharge Instructions: CONTINUE YOUR MEDICATIONS PRESCRIBED FOLLOW UP WITH [facility] FOR FURTHER CARE RETURN TO ER IF SYMPTOMS WORSEN All discharge instructions reviewed with patient and/or family. Voiced understanding. BRICE NAQVI DO Jun 15, 2023 20:10
[2023-06-15 20:32] LABS: ALBUMIN 4.4 GM/DL (3.2-4.5); BILIRUBIN,TOTAL 0.4 MG/DL (0.1-1.0); CALCIUM 9.8 MG/DL (8.5-10.1); CREATININE SERUM 0.82 MG/DL (0.60-1.30); POTASSIUM 3.7 MMOL/L (3.6-5.0); TOTAL PROTEIN 6.9 GM/DL (6.4-8.2)
--- NOTE | 2023-06-15 20:55 | Diagnostic Imaging Report ---
EXAM: Abdomen/KUB, 1view. INDICATION: Abdominal pain. COMPARISON: CT abdomen and pelvis 06/15/2023. FINDINGS: Cholecystectomy clips. Nonspecific bowel gas pattern. No suspicious radiopaque density. No acute osseous finding. IMPRESSION: No acute radiographic finding in the abdomen. Dictated by: Dictated on workstation # [id number]
--- NOTE | 2023-06-15 20:59 | Diagnostic Imaging Report ---
PROCEDURE: CT urinary tract, rule out kidney stone. TECHNIQUE: Multiple contiguous axial images were obtained through the abdomen and pelvis without the use of intravenous contrast. Auto Exposure Controls were utilized during the CT exam to meet ALARA standards for radiation dose reduction. INDICATION: Flank pain. Suspected kidney stone. COMPARISON: CT abdomen and pelvis without contrast, 11/30/2021. FINDINGS: Lung bases are clear. Diffuse fatty infiltration of the liver. Cholecystectomy. The pancreas, spleen, adrenals, kidneys, collecting systems, bladder and appendix are negative. No free intraperitoneal air or fluid. No lymphadenopathy. No evidence of bowel obstruction. Reproductive structures are grossly negative. No acute osseous finding. IMPRESSION: 1. No acute CT finding in the abdomen or pelvis. Specifically, no renal stone or hydronephrosis. 2. Hepatic steatosis. 3. Cholecystectomy. Dictated by: Dictated on workstation # [id number]
[2023-06-15 21:08] VITALS: BP 119/79
== END 2023-06-15 21:10 | disposition home or self-care (01) ==
LOC: EDUNIT# 19:41 → ER 19:43
DX: R10.32 Left lower quadrant pain (principal); R39.198 Other difficulties with micturition; E66.9 Obesity, unspecified; Z87.442 Personal history of urinary calculi; Z90.49 Acquired absence of other specified parts of digestive tract; Z98.890 Other specified postprocedural states; Z68.42 Body mass index [BMI] 45.0-49.9, adult
CPT/HCPCS: 36415; 74018; 74176; 80053; 84703; 85025

== ENCOUNTER 2023-06-20 14:54 | Emergency (ER) | payer OTHER ==
--- NOTE | 2023-06-20 15:14 | ED GU-Female ---
General Chief Complaint: - Reproductive Stated Complaint: URINARY RETENTION Source: patient Exam Limitations: no limitations History of Present Illness Date Seen by Provider: Jun 20, 2023 Time Seen by Provider: 14:56 Initial Comments 22-year-old female coming in due to difficulty urinating as a referral from walk-in clinic. She was seen in the emergency department on Sunday, had a CT scan which is negative for kidney stones, she was thought she potentially had a kidney stone at that time. She is on Flomax and Bactrim, but she has been vomiting she states. She also states she has been drinking numerous ounces of fluids constantly, only urinating a couple tablespoons at a time. Denies any fever, diarrhea, or any other concerns. Does endorse some dysuria. Allergies and Home Medications Allergies Coded Allergies: morphine (Verified Allergy, Severe, 05/03/21) stops breathing acetaminophen (Verified Allergy, Unknown, rash, 05/03/21) cariprazine (Verified Allergy, Unknown, 04/01/23) hydrocodone (Verified Allergy, Unknown, rash, 05/03/21) Patient Home Medication List Home Medication List Reviewed: Yes Butalb/Acetaminophen/Caffeine (Esgic 50-325-40 mg Tablet) 50 Mg-325 Mg-40 Mg Tablet, 1-2 EACH PO Q6 Prescribed by: BRICE NAQVI on 05/13/23515 Ketorolac Tromethamine (Ketorolac Tromethamine) 10 Mg Tablet, 10 MG PO Q6H Prescribed by: BRICE NAQVI on 05/13/23 0516 Ondansetron (Ondansetron Odt) 8 Mg Tab.rapdis, 8 MG PO Q6H Prescribed by: BRICE NAQVI on 05/13/23 0516 Sumatriptan Succinate (Imitrex) 100 Mg Tablet, 100 MG PO ONCE PRN for MIgraine Prescribed by: YANY WHITAKER on 05/21/23 0035 Review of Systems Review of Systems Constitutional: No fever EENTM: no symptoms reported Respiratory: no symptoms reported Cardiovascular: no symptoms reported Gastrointestinal: no symptoms reported Genitourinary: see HPI Musculoskeletal: no symptoms reported Skin: no symptoms reported Psychiatric/Neurological: No Symptoms Reported Endocrine: No Symptoms Reported Past Sqhfmed-[id number]-Xkosxp Hx Immunizations Up To Date First/Initial COVID19 Vaccinat: 04/25 Second COVID19 Vaccination Isai: 05/25 Third COVID19 Vaccination Date: 04/25 Seasonal Allergies Seasonal Allergies: No Past Medical History Surgery/Hospitalization HX: LITHOTRYPSY, T/A, CHOLECYSTECTOMY MUNOZ, SEIZURES, GERD, KIDNEY STONES Surgeries: Yes Adenoidectomy, Gallbladder, Renal, Tonsillectomy Respiratory: No Cardiac: No Neurological: Yes Headaches /Migraines, Seizure Disorder Genitourinary: Yes Bladder Infection, Kidney Stones Gastrointestinal: Yes (H. Pylori) Gastroesophageal Reflux Musculoskeletal: No Endocrine: No (OBESITY) HEENT: No Cancer: No Psychosocial: Yes Anxiety, Depression Integumentary: No Blood Disorders: No Family Medical History No Pertinent Family Hx Physical Exam Vital Signs Vital Signs - First Documented 06/20/23 14:57 Temp 37.1 Pulse 91 Resp 20 B/P (MAP) 147/91 (109) Pulse Ox 99 O2 Delivery Room Air Capillary Refill : Height, Weight, BMI Height: 5'3.00" Weight: 180lbs. oz. 81.153237cd; 45.00 BMI Method:Stated General Appearance: WD/WN, no apparent distress HEENT: PERRL/EOMI, normal ENT inspection, pharynx normal Neck: non-tender, full range of motion, supple, normal inspection Cardiovascular: regular rate, rhythm, no edema, no murmur Respiratory: chest non-tender, lungs clear, normal breath sounds, no respiratory distress, no accessory muscle use Gastrointestinal: normal bowel sounds, soft; No distended, No guarding, No rebound; tenderness (suprapubic) Back: normal inspection, no CVA tenderness Extremities: normal range of motion, non-tender, normal inspection, no pedal edema, no calf tenderness, normal capillary refill Neurologic/Psychiatric: no motor/sensory deficits, alert, normal mood/affect Skin: normal color, warm/dry Progress/Results/Core Measures Suspected Sepsis SIRS Temperature: Pulse: Respiratory Rate: Laboratory Tests 06/20/23 15:11: White Blood Count 9.0 Blood Pressure / Mean: Laboratory Tests 06/20/23 15:11: Creatinine 0.85, Platelet Count 285, Total Bilirubin 0.6 Results/Orders Lab Results Laboratory Tests Test 06/20/23 15:11 06/20/23 15:13 Range/Units White Blood Count 9.0 4.3-11.0 10^3/uL Red Blood Count 4.76 3.80-5.11 10^6/uL Hemoglobin 13.5 11.5-16.0 g/dL Hematocrit 41 35-52 % Mean Corpuscular Volume 87 80-99 fL Mean Corpuscular Hemoglobin 28 25-34 pg Mean Corpuscular Hemoglobin Concent 33 32-36 g/dL Red Cell Distribution Width 12.4 10.0-14.5 % Platelet Count 285 130-400 10^3/uL Mean Platelet Volume 10.0 9.0-12.2 fL Immature Granulocyte % (Auto) 0 % Neutrophils (%) (Auto) 67 42-75 % Lymphocytes (%) (Auto) 23 12-44 % Monocytes (%) (Auto) 7 0-12 % Eosinophils (%) (Auto) 2 0-10 % Basophils (%) (Auto) 0 0-10 % Neutrophils # (Auto) 6.0 1.8-7.8 10^3/uL Lymphocytes # (Auto) 2.1 1.0-4.0 10^3/uL Monocytes # (Auto) 0.7 0.0-1.0 10^3/uL Eosinophils # (Auto) 0.2 0.0-0.3 10^3/uL Basophils # (Auto) 0.0 0.0-0.1 10^3/uL Immature Granulocyte # (Auto) 0.0 0.0-0.1 10^3/uL Sodium Level 137 135-145 MMOL/L Potassium Level 4.0 3.6-5.0 MMOL/L Chloride Level 106 98-107 MMOL/L Carbon Dioxide Level 25 21-32 MMOL/L Anion Gap 6 5-14 MMOL/L Blood Urea Nitrogen 10 7-18 MG/DL Creatinine 0.85 0.60-1.30 MG/DL Estimat Glomerular Filtration Rate 98 BUN/Creatinine Ratio 12 Glucose Level 95 70-105 MG/DL Calcium Level 9.5 8.5-10.1 MG/DL Corrected Calcium 9.2 8.5-10.1 MG/DL Magnesium Level 2.2 1.6-2.4 MG/DL Total Bilirubin 0.6 0.1-1.0 MG/DL Aspartate Amino Transf (AST/SGOT) 28 5-34 U/L Alanine Aminotransferase (ALT/SGPT) 40 0-55 U/L Alkaline Phosphatase 53 40-136 U/L Total Protein 7.3 6.4-8.2 GM/DL Albumin 4.4 3.2-4.5 GM/DL Lipase 17 8-78 U/L Serum Test, Qualitative NEGATIVE NEGATIVE Urine Color YELLOW Urine Clarity CLOUDY Urine pH 8.5 5-9 Urine Specific Tripp 1.020 1.016-1.022 Urine Protein 2+ H NEGATIVE Urine Glucose (UA) NEGATIVE NEGATIVE Urine Ketones NEGATIVE NEGATIVE Urine Nitrite NEGATIVE NEGATIVE Urine Bilirubin NEGATIVE NEGATIVE Urine Urobilinogen 0.2 < = 1.0 MG/DL Urine Leukocyte Esterase 3+ H NEGATIVE Urine RBC (Auto) TRACE H NEGATIVE Urine RBC 2-5 H /HPF Urine WBC 10-25 H /HPF Urine Squamous Epithelial Cells 25-50 H /HPF Urine Crystals NONE /LPF Urine Bacteria LARGE H /HPF Urine Casts NONE /LPF Urine Mucus NEGATIVE /LPF Urine Culture Indicated YES My Orders Orders - TONY HENRIQUEZ MD Cbc With Automated Diff (06/20/23 15:08) Comprehensive Metabolic Panel (06/20/23 15:08) Hcg,Qualitative Serum (06/20/23 15:08) Lipase (06/20/23 15:08) Magnesium (06/20/23 15:08) Ua Culture If Indicated (06/20/23 15:08) Ed Iv/Invasive Line Start (06/20/23 15:08) Ondansetron Injection (Zofran Injectio (06/20/23 15:15) Ketorolac Injection (Ketorolac Injection (06/20/23 15:15) Droperidol Injection (Ed Only) (Droperid (06/20/23 15:30) Drug Screen Stat (Urine) (06/20/23 15:30) Fentanyl Injection (Fentanyl Injection (06/20/23 16:00) Urine Culture (06/20/23 15:13) Ceftriaxone Iv/Im (Ceftriaxone Iv/Im) (06/20/23 16:00) Medications Given in ED Current Medications Medications Dose Ordered Sig/Sushant Route Start Time Stop Time Status Last Admin Dose Admin Droperidol 2.5 mg ONCE ONCE IV 06/20/23 15:30 06/20/23 15:31 DC 06/20/23 15:49 2.5 MG Ketorolac Tromethamine 15 mg ONCE ONCE IVP 06/20/23 15:15 06/20/23 15:16 DC 06/20/23 15:17 15 MG Ondansetron HCl 4 mg ONCE ONCE IVP 06/20/23 15:15 06/20/23 15:16 DC 06/20/23 15:16 4 MG Vital Signs/I&O 06/20/23 14:57 Temp 37.1 Pulse 91 Resp 20 B/P (MAP) 147/91 (109) Pulse Ox 99 O2 Delivery Room Air Capillary Refill : Progress Note : Progress Note 22-year-old female with above history coming in due to difficulty urinating and dysuria. ABCs were intact and vitals were stable on presentation. Physical exam with some suprapubic discomfort. [id number] ultrasound showed initially 220 cc of urine, after she urinated she had a PVR of 0. Creatinine is normal again today which is reassuring, electrolytes unremarkable, white blood cell count unremarkable. Urinalysis concerning for infection. Given a dose of ceftriaxone and repeat doses of nausea medicine and pain medicine here in the ER. I will send a prescription for nausea medicine, antibiotics, and pain to [facility]. Since she has not had significant change in her symptoms since her CT scan a couple days ago, I do not believe a repeat is warranted at this time. I did review that CT which was normal. I believe she stable for discharge with outpatient follow-up. She was sent home with strict return precautions. Departure Impression Primary Impression: Cystitis Disposition: 01 HOME, SELF-CARE Condition: Stable Departure-Patient Inst. Decision time for Depature: 16:20 Referrals: MARVIN ORDAZ DO (PCP/Family) Primary Care Physician Patient Instructions: Acute Cystitis (DC), Bladder Pain Syndrome (Interstitial Cystitis) (DC) Add. Discharge Instructions: You do have an infection in your bladder which is caused inflammation and the symptoms that you are feeling. You will be on antibiotics for the next 5 days starting tomorrow. The antibiotic you received today is technically sufficient for an infection similar to this, however the extra doses likely will be helpful. Nausea medicines and pain medicines were also sent to your pharmacy. It may be beneficial to follow-up with a urologist if you are not having improvement in your symptoms. Scripts Promethazine HCl (Promethazine Tablet) 25 Mg Tablet 25 MG PO Q8H PRN for NAUSEA/VOMITING for 5 Days, #15 TAB 0 Refills Prov: TONY HENRIQUEZ MD 06/20/23 Oxycodone HCl (Oxycodone HCl) 5 Mg Tablet 5 MG PO Q6H PRN for PAIN-SEVERE (8-10) for 3 Days, #12 TAB Prov: TONY HENRIQUEZ MD 06/20/23 Cefdinir (Cefdinir) 300 Mg Capsule 300 MG PO BID for 7 Days, #14 CAP 0 Refills Prov: TONY HENRIQUEZ MD 06/20/23 Work/School Note: Work Release Form Date Seen in the Emergency Department: Jun 20, 2023 Return to Work: Jun 22, 2023 Restrictions: Return-No Vomiting(24hrs) TONY HENRIQUEZ MD Jun 20, 2023 15:14
[2023-06-20] MEDS ORDERED: ONDANSETRON 4 MG/2 ML (SDV) Z0FRAN IVP ONE (15:15)
[2023-06-20] MEDS ORDERED: KETOROLAC INJ 30 MG/ML VIAL IVP ONE (15:15)
[2023-06-20 15:21] LABS: BASOPHILS % (AUTO) 0 % (0-10); EOSINOPHILS # (AUTO) 0.2 10^3/uL (0.0-0.3); EOSINOPHILS % (AUTO) 2 % (0-10); HEMATOCRIT 41 % (35-52); HEMOGLOBIN 13.5 g/dL (11.5-16.0); LYMPHOCYTES # (AUTO) 2.1 10^3/uL (1.0-4.0); LYMPHOCYTES % (AUTO) 23 % (12-44); MEAN CORPUSCULAR HEMOGLOBIN 28 pg (25-34); MEAN CORPUSCULAR HGB CONC 33 g/dL (32-36); MEAN CORPUSCULAR VOLUME 87 fL (80-99); MONOCYTES # (AUTO) 0.7 10^3/uL (0.0-1.0); MONOCYTES % (AUTO) 7 % (0-12); NEUTROPHILS % (AUTO) 67 % (42-75); PLATELET COUNT 285 10^3/uL (130-400)
[2023-06-20] MEDS ORDERED: DroPERidol INJECTION 5 MG/2 ML (ED ONLY!) IV ONE (15:30)
[2023-06-20 15:33] LABS: ALBUMIN 4.4 GM/DL (3.2-4.5)
[2023-06-20 15:35] LABS: CALCIUM 9.5 MG/DL (8.5-10.1)
[2023-06-20 15:36] LABS: TOTAL PROTEIN 7.3 GM/DL (6.4-8.2)
[2023-06-20 15:38] LABS: BILIRUBIN,TOTAL 0.6 MG/DL (0.1-1.0)
[2023-06-20 15:40] LABS: CREATININE SERUM 0.85 MG/DL (0.60-1.30)
[2023-06-20 15:42] LABS: MAGNESIUM 2.2 MG/DL (1.6-2.4)
[2023-06-20 15:55] LABS: CLARITY,URINE CLOUDY; COLOR,URINE YELLOW; PH,URINE 8.5 (5-9)
[2023-06-20 15:56] LABS: BACTERIA,URINE LARGE /HPF; BILIRUBIN,URINE NEGATIVE (NEGATIVE); GLUCOSE, URINE (UA) NEGATIVE (NEGATIVE); KETONES,URINE NEGATIVE (NEGATIVE); LEUKOCYTE ESTERASE ,URINE 3+ (NEGATIVE); NITRITE,URINE NEGATIVE (NEGATIVE); PROTEIN,URINE 2+ (NEGATIVE); SQUAMOUS EPITHELIAL CELL,UR 25-50 /HPF
[2023-06-20] MEDS ORDERED: fentaNYL INJECTION 100 MCG/2 ML VIAL IVP ONE (16:00)
[2023-06-20] MEDS ORDERED: cefTRIAXone IV/IM 1,000 MG in NS (IVPB) 50 ML 50 ML IV ONE (16:00)
[2023-06-20] MEDS ORDERED: PROM25TA14 PO (16:04)
[2023-06-20] MEDS ORDERED: CEFD300C3 PO (16:04)
[2023-06-20] MEDS ORDERED: OXYC5TAB PO (16:04)
[2023-06-20 16:33] VITALS: BP 135/90
[2023-06-20 19:06] LABS: AMPHETAMINE SCREEN, URINE NEGATIVE (NEGATIVE); BARBITURATE SCREEN URINE NEGATIVE (NEGATIVE); BENZODIAZEPINES SCREEN URINE NEGATIVE (NEGATIVE); CANNABINOID SCREEN, URINE NEGATIVE (NEGATIVE); COCAINE SCREEN URINE NEGATIVE (NEGATIVE); METHADONE STAT NEGATIVE (NEGATIVE); OPIATE SCREEN URINE NEGATIVE (NEGATIVE); OXYCODONE STAT NEGATIVE (NEGATIVE); PROPOXYPHENE STAT NEGATIVE (NEGATIVE); TRICYCLIC ANTIDEPRESSANTS SCRE NEGATIVE (NEGATIVE)
== END 2023-06-20 16:33 | disposition home or self-care (01) ==
LOC: EDUNIT# 14:54 → ER 14:55
DX: N30.90 Cystitis, unspecified without hematuria (principal); Z87.442 Personal history of urinary calculi; Z98.890 Other specified postprocedural states
CPT/HCPCS: 36415; 80053; 80306; 81000; 83690; 83735; 84703; 85025; 87088